=== PATIENT | female | born 1955 | race Caucasian/White ===

== ENCOUNTER 2016-10-11 15:08 | Inpatient (IN) ==
--- NOTE | 2016-10-11 15:16 | Emergency Department Note ---
Addendum entered and electronically signed by Margarito Hill DO 10/11/16 20:21: Patient was started on broad-spectrum antibiotics, for leukocytosis with sepsis and a left foot infection, presumed cellulitis with a demarcated area in the emergency department, left foot ulcer poorly healed, that did not show any rapid expansion, no crepitus on exam. During the ED course patient was stable and an Xray was obtained in the ED of the left foot to eval for osteo, however this read was called to the floor as the patient had just left the Emergency Department admitted. This resident was then made aware that the Bucket Pusher was consulted and the Xray showed necrotizing fasciitis, that this finding was communicated to the hospitalist taking care of the patient, and surgical management was appropriately arranged for in the hospital by the hospitalist upon admission, and that this was done expediently. Original Note: Disposition Clinical Impression: Cellulitis Qualifiers: Site of cellulitis: extremity Site of cellulitis of extremity: lower extremity Laterality: left Qualified Code(s): L03.116 - Cellulitis of left lower limb Sepsis Qualifiers: Qualified Code(s): A41.9 - Disposition: Admitted As Inpatient Condition: Critical Time of Disposition: 18:09 General Adult HPI - General Chief complaint: ED Nausea/Vomiting/Diarrhea Stated complaint: N/V/D Time Seen by Provider: 10/11/16 15:14 Source: patient Mode of arrival: ambulatory Limitations: no limitations Nursing Notes Reviewed: Yes Vital Signs Reviewed: Yes - History of Present Illness HPI Narrative: 61-year-old female with history of diabetic foot ulcer. Presents with NV x 3 days. Reports subjective fevers at home. 8/10 left foot pain, mara serna seen [address] serna. She denies chest pain, abdominal pain, reports nausea and vomiting, denies diarrhea hematochezia melena Onset (ago): day(s) (2) Location: lower extremity Pain Severity: moderate Pain Scale: 5 Quality: aching Consistency: intermittent Improves with: nothing Worsens with: nothing Associated symptoms: Reports: denies other symptoms Treatments Prior to Arrival: none - Related Data Home Medications Medication Instructions Recorded Confirmed Aspirin Enteric Coated [Aspirin EC] 81 mg PO DAILY 08/13/16 10/11/16 Acetaminophen [Tylenol] 650 mg PO Q6HR PRN 10/11/16 10/11/16 Collagenase Oint [Santyl] 1 appl TP BID 10/11/16 10/11/16 Metformin [Glucophage] 1,000 mg PO BID 10/11/16 10/11/16 Previous Rx's Medication Instructions Recorded Atorvastatin [Lipitor] 40 mg PO HS #30 tablet 08/17/16 Clopidogrel [Plavix] 75 mg PO DAILY #30 tablet 08/17/16 Lisinopril [Zestril] 2.5 mg PO DAILY tablet 08/17/16 Allergies Allergy/AdvReac Type Severity Reaction Status Date / Time codeine AdvReac Intermediate Confusion Verified 08/13/16 13:35 Review of Systems: A 14 point ROS was obtained and was negative except as per below or as documented in the HPI. Constitutional: Denies: fever, chills, weakness, weight change Eyes: Denies: eye pain, eye discharge, vision change ENT: Denies: ear pain, throat pain, hearing loss, epistaxis, congestion, Cardiovascular: Denies: chest pain, palpitations, dyspnea on exertion, edema, syncope Respiratory: Denies: cough, dyspnea, wheezes, hemoptysis, stridor Gastrointestinal: nausea, vomiting Denies: abdominal pain,. diarrhea, constipation, hematemesis, hematochezia Genitourinary: Denies: urgency, dysuria, frequency, hematuria Musculoskeletal: Denies: back pain, neck pain, arthralgia, myalgia Integumentary: +Left foot ulcer Denies: rash, abrasion, lesions Neurological: Denies: headache, weakness, numbness, paresthesias, confusion, abnormal gait Psychiatric: Denies: anxiety, depression, suicidal thoughts, homicidal thoughts , Endocrine: Denies: fatigue Hematological/Lymphatic: Denies: easy bleeding, easy bruising Allergic/Immunologic: Denies: facial swelling, urticaria All systems ED: reviewed and negative except as stated. 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 - Social History Smoking Status: Current every day smoker Smokeless Tobacco Status: No Alcohol use: Reports: none Drug use: Reports: none Physical Exam General: alert and oriented, in NAD, appears stated age, is pleasant and cooperative to exam Head: NCAT, no lesions Eyes: sclera anicteric, conjunctiva normal, PERRLA bilaterally, EOMI Bilaterally Ears: normal inspection, external ear wnl Nose: nasal septum nondeviated, sinuses nontender Throat: good dentition, mucous membranes moist Neck: no lymphadenopathy, trachea midline no deviation, no JVD Resp: CTA bilaterally, no resp distress, symmetric chest rise, no wheezes, rales , or rhonchi bilaterally CV: RRR, normal S1 and S2, no m/g/r, Pulses +2 Rad, +2 DP/PT Abdomen: Soft, NTND, no hepatosplenomegaly, no hernias, Negative Rovsing's sign , Negative Gage's sign Back: normal inspection, no tenderness to palpation, Negative CVA tenderness bilaterally Neuro: A&O3, CN II-XII grossly intact bilaterally, no motor or sensory deficits bilaterally, gait normal, GCS 15 [id number] Ext: foul smelling left foot, large 3 cm ulcer, evidence of granulation tissue , no obvious pus or drainage. Market cellulitis around the left lower leg Psych: normal mood, normal affect Skin: No rashes, skin warm, dry, intact Course Course Narrative: 61-year-old female concern for sepsis given tachycardia and temperature 101.6 source is likely the foot, full septic workup ordered with blood cultures lactate, 2 L of IV fluids, - Reevaluation(s) Reevaluation #1: Admitted to medicine service accepting Patient was started on Zosyn and Vanc imaging was added, patient is stable time of acceptance. Vital Signs Temperature 101.6 F H 10/11/16 15:10 Pulse Rate 93 10/11/16 15:10 Respiratory Rate 22 10/11/16 15:10 Blood Pressure 115/59 10/11/16 15:10 O2 Sat by Pulse Oximetry 100 10/11/16 15:10 Temperature 101.1 F H 10/11/16 18:44 Pulse Rate 90 10/11/16 18:44 Respiratory Rate 17 10/11/16 18:44 Blood Pressure 115/62 10/11/16 18:44 O2 Sat by Pulse Oximetry 98 10/11/16 18:44 Oxygen Delivery Oxygen Delivery Room Air Medical Decision Making - MDM Narrative Medical decision making narrative: 61-year-old female admitted to the hospitalist service for sepsis, started on broad-spectrum antibiotics, IV fluids no evidence of severe sepsis at the time of ED presentation, but 2 L fluid bolus was given anyway, lactate normal repeat lactate was ordered. patient vss bp good on admission. - Medical Records Medical records reviewed: Yes I reviewed the patient's medical records. - Lab Data Lab results reviewed: Yes I reviewed the patient's lab results. Result diagrams: 10/11/16 15:36 10/11/16 15:36 Lab Results 10/11/16 10/11/16 10/11/16 Range/Units 15:36 15:36 15:36 WBC 24.3 H (4.3-11.1) K/mcL RBC 3.92 (3.82-4.97) M/mcL Hgb 10.5 L (11.5-15.4) g/dL Hct 32.7 L (35.3-44.9) % MCV 83.4 (83.0-100.0) fL MCH 26.8 L (28.0-33.3) pg MCHC 32.1 (31.6-35.5) g/dL RDW 13.8 (11.5-14.5) % Plt Count 323 (140-400) K/mcL MPV 11.0 (9.4-12.4) fL Immature Gran % 2.2 (0-4) % Seg Neutrophils % 87.9 % Lymphocytes % 3.2 % Monocytes % 6.5 % Eosinophils % 0.0 % Basophils % 0.2 % Neutrophils # 21.4 H (1.6-8.9) K/mcL Lymphocytes # 0.8 (0.6-4.6) K/mcL Monocytes # 1.6 H (0.0-1.3) K/mcL Eosinophils # 0.0 (0.0-0.6) K/mcL Basophils # 0.1 (0.0-0.2) K/mcL Platelet Estimate Normal (Normal) PT 15.6 H (9.4-12.1) Seconds INR 1.4 APTT 32.2 (26.0-36.0) Seconds Sodium 134 L (136-145) mEq/L Potassium 3.5 (3.5-4.5) mEq/L Chloride 97 L (98-109) mEq/L Carbon Dioxide 25 (19-29) mEq/L BUN 36 H (7-20) mg/dL Creatinine 1.06 (0.57-1.11) mg/dL Est GFR ( Amer) > 60 (> 60) Est GFR (Non-Af Amer) 53 L (> 60) BUN/Creatinine Ratio 34 H (6-26) Glucose 217 H (70-99) mg/dL Calculated Osmolality 293 (280-300) Lactic Acid (0.5-2.2) mmol/L Calcium 9.2 (8.6-10.8) mg/dL Phosphorus 3.7 (2.3-4.7) mg/dL Magnesium 1.6 (1.6-2.6) mg/dL Total Bilirubin 0.5 (0.2-1.2) mg/dL Direct Bilirubin 0.4 (0.0-0.5) mg/dL Indirect Bilirubin 0.1 (0.0-1.2) mg/dL AST 50 H (5-34) Units/L ALT 17 (0-55) Units/L Alkaline Phosphatase 78 (38-126) Units/L Troponin I (0-0.03) ng/mL Serum Total Protein 8.0 (6.0-8.3) g/dL Albumin 2.1 L (3.5-5.0) g/dL Globulin 5.9 H (2.4-3.5) g/dL Albumin/Globulin Ratio 0.4 L (1.1-2.2) 10/11/16 10/11/16 Range/Units 15:36 15:36 WBC (4.3-11.1) K/mcL RBC (3.82-4.97) M/mcL Hgb (11.5-15.4) g/dL Hct (35.3-44.9) % MCV (83.0-100.0) fL MCH (28.0-33.3) pg MCHC (31.6-35.5) g/dL RDW (11.5-14.5) % Plt Count (140-400) K/mcL MPV (9.4-12.4) fL Immature Gran % (0-4) % Seg Neutrophils % % Lymphocytes % % Monocytes % % Eosinophils % % Basophils % % Neutrophils # (1.6-8.9) K/mcL Lymphocytes # (0.6-4.6) K/mcL Monocytes # (0.0-1.3) K/mcL Eosinophils # (0.0-0.6) K/mcL Basophils # (0.0-0.2) K/mcL Platelet Estimate (Normal) PT (9.4-12.1) Seconds INR APTT (26.0-36.0) Seconds Sodium (136-145) mEq/L Potassium (3.5-4.5) mEq/L Chloride (98-109) mEq/L Carbon Dioxide (19-29) mEq/L BUN (7-20) mg/dL Creatinine (0.57-1.11) mg/dL Est GFR ( Amer) (> 60) Est GFR (Non-Af Amer) (> 60) BUN/Creatinine Ratio (6-26) Glucose (70-99) mg/dL Calculated Osmolality (280-300) Lactic Acid 1.5 (0.5-2.2) mmol/L Calcium (8.6-10.8) mg/dL Phosphorus (2.3-4.7) mg/dL Magnesium (1.6-2.6) mg/dL Total Bilirubin (0.2-1.2) mg/dL Direct Bilirubin (0.0-0.5) mg/dL Indirect Bilirubin (0.0-1.2) mg/dL AST (5-34) Units/L ALT (0-55) Units/L Alkaline Phosphatase (38-126) Units/L Troponin I 0.03 (0-0.03) ng/mL Serum Total Protein (6.0-8.3) g/dL Albumin (3.5-5.0) g/dL Globulin (2.4-3.5) g/dL Albumin/Globulin Ratio (1.1-2.2) - Radiology Data Radiology results reviewed: Yes I reviewed the patient's radiology results. Chest X-Ray 10/11/16 15:15 IMPRESSION: No acute cardiopulmonary disease. D/ / Pedro Pablo Zuniga MD / Pedro Pablo Zuniga MD Interpreting Provider: Pedro Pablo Zuniga MD - EKG Data EKG #1 EKG attestation: Yes I reviewed and interpreted this EKG. EKG shows normal: sinus rhythm (90 bpm [place] 129 QRS 146 QTc 437) [place]/QRS: LBBB (Seen on previous EKG August 2016) When compared to previous EKG there are: no significant changes Interpretation: no acute changes - Core Measures AMI Core Measures Followed: No Critical Care Time Critical Care Time: Yes Total Critical Care Time: 30 Attestation: Critical care performed: Time is exclusive of separately billable procedures. Time includes: direct patient care, patient reassessment, coordination of patient care, interpretation of data (laboratory data, radiology data, and respiratory data), review of patient's medical records, medical consultation and documentation of patient care. Procedures included in critical care time: Procedures excluded from critical care time: Attestation Statement - Attestation Attestation: I examined this patient and my medical decision-making was reviewed with the ASSISTANT PROFESSOR OF PHILOSOPHY/PA/Advanced Practice Nurse/Resident Physician. I agree with the documented findings, disposition and treatment plan as described except to the extent set forth below. Patient presents to the emergency department she complained of a left foot infection. Patient has a chronic wound on her heel is complaining of pain and redness. On examination she has a chronic appearing ulceration on the left heel. There is a moderate amount of surrounding erythema. She is febrile. Plan. Septic workup. Patient was old and white count. Given broad-spectrum antibiotics. Admitted to medicine.
[2016-10-11] MEDS: 0.9 % Sodium Chloride 1,000 ML IVC SCH ×2 (15:30→16:39)
[2016-10-11 15:54] LABS: Basophils # 0.1 K/mcL (0.0-0.2); Basophils % 0.2 %; Hematocrit 32.7 % (35.3-44.9); Hemoglobin 10.5 g/dL (11.5-15.4); Immature Granulocytes % 2.2 % (0-4); Lymphocytes # 0.8 K/mcL (0.6-4.6); Lymphocytes % 3.2 %; Mean Corpuscular HGB Conc 32.1 g/dL (31.6-35.5); Mean Corpuscular Hemoglobin 26.8 pg (28.0-33.3); Mean Corpuscular Volume 83.4 fL (83.0-100.0); Monocytes # 1.6 K/mcL (0.0-1.3); Monocytes % 6.5 %; Platelet Count 323 K/mcL (140-400); Red Blood Count 3.92 M/mcL (3.82-4.97); Red Cell Distribution Width 13.8 % (11.5-14.5); Segmented Neutrophils % 87.9 %
[2016-10-11 15:56] LABS: Neutrophils # 21.4 K/mcL (1.6-8.9)
[2016-10-11 15:59] LABS: INR 1.4; Prothrombin Time 15.6 Seconds (9.4-12.1)
[2016-10-11] MEDS ORDERED: Vancomycin 1,000 MG in D5% in Water 250 ML IVPB ONE (16:01)
[2016-10-11] MEDS ORDERED: Piperacillin/Tazobactam 3.375 GM in D5% in Water (Mini-Bag+) 100 ML IVPB ONE (16:01)
[2016-10-11 16:02] LABS: Activated Partial Thrombo Time 32.2 Seconds (26.0-36.0)
[2016-10-11 16:08] LABS: Alanine Aminotransferase 17 Units/L (0-55); Albumin 2.1 g/dL (3.5-5.0); Albumin/Globulin Ratio 0.4 (1.1-2.2); Alkaline Phosphatase 78 Units/L (38-126); Aspartate Amino Transferase 50 Units/L (5-34); BUN/Creatinine Ratio 34 (6-26); Bilirubin,Direct 0.4 mg/dL (0.0-0.5); Bilirubin,Indirect 0.1 mg/dL (0.0-1.2); Bilirubin,Total 0.5 mg/dL (0.2-1.2); Blood Urea Nitrogen 36 mg/dL (7-20); Calcium 9.2 mg/dL (8.6-10.8); Carbon Dioxide 25 mEq/L (19-29); Chloride 97 mEq/L (98-109); Globulin 5.9 g/dL (2.4-3.5); Glucose 217 mg/dL (70-99); Magnesium 1.6 mg/dL (1.6-2.6); Osmolality,Calculated 293 (280-300); Phosphorous 3.7 mg/dL (2.3-4.7); Potassium 3.5 mEq/L (3.5-4.5); Sodium 134 mEq/L (136-145); eGFR For African Americans > 60 (> 60); eGFR For Non-African Americans 53 (> 60)
[2016-10-11 16:14] LABS: Platelet Estimate Normal (Normal)
[2016-10-11] MEDS ORDERED: 0.9 % Sodium Chloride 1,000 ML IV ONE (16:55)
--- NOTE | 2016-10-11 17:57 | Internal Med History&Physical ---
<Wes Hebert - Last Filed: 10/11/16 18:31> Date of Encounter: 10/11/16 Time of Encounter: 18:00 Assessment and Plan (1) Sepsis Current visit: Yes Status: Acute Patient presented with fever, borderline tachycardia, and leukocytosis, with likely source being her diabetic foot ulcer Will continue broad spectrum antibiotics with Vancomycin and Zosyn; await culture sensitivities prior to de-escalation Blood cultures collected and wound cultures ideally will be collected during debridement Obtain MRI to rule out osteomyelitis Supportive measures with IVF @ 80 ml/hr, anti-pyretics and anti-emetics Qualifiers: Qualified Code(s): A41.9 - Sepsis, unspecified organism (2) Diabetic ulcer of left foot Current visit: Yes Status: Acute The ulcer certainly looks deep, but unable to definitively locate any bone Will obtain MRI without contrast of left foot to rule out osteomyelitis Podiatry consulted, appreciate management and recommendations Would ideally obtain wound culture from debridement if procedure is indicated Consult wound care and oncology social work if she requires additional services upon discharge Qualifiers: Diabetes mellitus type: type 2 Qualified Code(s): E11.621 - Type 2 diabetes mellitus with foot ulcer; L97.529 - Non-pressure chronic ulcer of other part of left foot with unspecified severity (3) Uncontrolled diabetes mellitus Current visit: Yes Status: Chronic Likely uncontrolled given her history of ulcers and vascular disease Will obtain HbA1c level tomorrow morning Start on medium dose SSI ACHS and accuchecks per protocol Patient likely may benefit from perinatal educator and insulin coverage upon discharge Qualifiers: Qualified Code(s): E11.65 - Type 2 diabetes mellitus with hyperglycemia (4) Peripheral vascular disease Current visit: Yes Status: Chronic Patient is s/p fem-tib bypass with graft 2 months ago Will rule out occlusion/clot by obtaining left foot arterial and venous dopplers (5) Coronary artery disease Current visit: No Status: Chronic Patient is s/p LYLE to RCA 2 months ago and has no active chest pain Continue with home dose ASA and Plavix Qualifiers: Coronary Disease-Associated Artery/Lesion type: [place] artery [place] vs. transplanted heart: [place] heart Associated angina: without angina Qualified Code(s): I25.10 - Atherosclerotic heart disease of [place] coronary artery without angina pectoris (6) HLD (hyperlipidemia) Current visit: No Status: Chronic Continue home Lipitor Qualifiers: Hyperlipidemia type: mixed hyperlipidemia Qualified Code(s): E78.2 - Mixed hyperlipidemia (7) HTN (hypertension) Current visit: No Status: Chronic Blood pressures have been stable and WNL since admission Continue with home Lisinopril Qualifiers: Hypertension type: essential hypertension Qualified Code(s): I10 - Essential (primary) hypertension (8) DVT prophylaxis Current visit: Yes Status: Acute Heparin 5000 units BID Internal Medicine - H&P: HPI Chief complaint: diabetic foot ulcer Admitted From: Home Plans for Post Hospital Care: Home (possibly with home health) History of present illness: Ms. Clark is a 61 year old female who presents from home with left diabetic foot ulcers that have been progressively worsening over the past week. She states she has been seeing Dr. Pollard for about 2 months, and has wound care through his clinic as well. She lives at home with a friend and claims she has a neighbor that comes by and assists with her wound care. She normally is able to walk with a boot, but hasn't been able to in the past 3-4 days due to severe pain. Patient also states subjective fevers, chills, and has been having nausea and vomiting since midnight. She reports 3 episodes of non-bloody emesis that do not have a triggering factor. She also reports having diarrhea but has not been on any antibiotics recently. Of note, she recently had a left fem-tib bypass done by Dr. Plummer and also had a LYLE to RCA 2 months ago and is currently on ASA and Plavix. Denies any chest pain or shortness of breath. Past Med Surg Social Fam HX - Past Medical History Medical history: diabetes, hyperlipidemia, hypertension Psychiatric history: anxiety - Past Surgical History Surgical History: no surgical history - Social History Smoking Status: Current every day smoker Smokeless Tobacco Status: No Alcohol use: none Drug use: none Internal Medicine - H&P: Meds Aspirin Enteric Coated [Aspirin EC] 81 mg PO DAILY 08/13/16 [History] Atorvastatin [Lipitor] 40 mg PO HS #30 tablet 08/17/16 [Rx] Clopidogrel [Plavix] 75 mg PO DAILY #30 tablet 08/17/16 [Rx] Lisinopril [Zestril] 2.5 mg PO DAILY tablet 08/17/16 [Rx] Acetaminophen [Tylenol] 650 mg PO Q6HR PRN 10/11/16 [History] Collagenase Oint [Santyl] 1 appl TP BID 10/11/16 [History] Metformin [Glucophage] 1,000 mg PO BID 10/11/16 [History] Allergies codeine Adverse Reaction (Intermediate, Verified 08/13/16 13:35) Confusion All Systems PM: A 10-system review of systems was performed and is negative for pertinent findings except as documented above in the HPI. - Constitutional Constitutional: chills, fever(s), no night sweats - EENT Eyes: no change in vision, no discharge, no pain, no photophobia Nose, mouth and throat: no dysphagia, no nasal discharge, no neck pain, no sore throat - Cardiovascular Cardiovascular ROS IM: no chest pain, no diaphoresis, no dyspnea, no lightheadedness, no palpitations, no syncope - Respiratory Respiratory: no cough, no dyspnea, no wheezing, no excessive phlegm production - Gastrointestinal Gastrointestinal: diarrhea, nausea, vomiting, no abdominal pain, no hematemesis , no hematochezia, no melena - Genitourinary Genitourinary: no change in urinary stream, no dysuria, no flank pain, no hematuria - Musculoskeletal Musculoskeletal ROS IM: no numbness, no tingling - Integumentary Integumentary IM: skin ulcer (left foot), no rash, no unusual bruising - Neurological Neurological ROS: no confusion, no convulsions, no focal weakness, no numbness, no tingling, no tremor(s) - Hematologic/Lymphatic Hematologic/Lymphatic: no easy bruising - Constitutional Vitals: Temp Pulse Resp BP Pulse Ox 101.6 F H 88 22 136/72 96 10/11/16 15:10 10/11/16 17:13 10/11/16 17:13 10/11/16 17:13 10/11/16 17:13 General appearance: Present: cooperative, mild distress, pleasant, answers questions appropriately - Head Head exam: Present: atraumatic, normocephalic - Eye Eye exam: Present: PERRL, conjuntiva pink, sclera anicteric - Neck Neck exam general surgery: Present: supple, trachea midline. Absent: lymphadenopathy - Respiratory Respiratory exam: Present: CTAB. Absent: accessory muscle use, rales, rhonchi, wheezes - Cardiovascular Cardiovascular exam: Present: RRR, +S1, +S2. Absent: diastolic murmur, gallop, rubs, systolic murmur - GI/Abdominal GI/Abdominal exam: Present: normal bowel sounds, soft, no peritoneal signs. Absent: distended, tenderness - Extremities Exam Extremities exam: Present: tenderness (marked tenderness to light palpation of left calf and foot, minimal tenderness of right), warm, radial pulses palpable and symetrical. Absent: calf tenderness, cyanotic, pedal edema Additional comments: two distinct ulcers located at the left foot, one at the base of the heel, roughly 3 cm in circumference; another ulcer located inferior to the medial malleolus; both have black eschar overlying any soft tissue or bony structures that may otherwise be visible - Expanded Lower Extremities Exam Foot/Toe exam: Present: erythema, swelling, tenderness - Neurological Exam Neurological exam: Present: alert, oriented X3, no focal deficits. Absent: facial droop, speech deficit Internal Med - H&P Results - Labs CBC & Chem 7: 10/11/16 15:36 10/11/16 15:36 Labs: Short CBC 10/11/16 Range/Units 15:36 WBC 24.3 H (4.3-11.1) K/mcL Hgb 10.5 L (11.5-15.4) g/dL Hct 32.7 L (35.3-44.9) % Plt Count 323 (140-400) K/mcL Neutrophils # 21.4 H (1.6-8.9) K/mcL BMP 10/11/16 15:36 Sodium 134 L Potassium 3.5 Chloride 97 L Carbon Dioxide 25 BUN 36 H Creatinine 1.06 Glucose 217 H Calcium 9.2 Cardiac Enzymes 10/11/16 Range/Units 15:36 Troponin I 0.03 (0-0.03) ng/mL Liver Function 10/11/16 Range/Units 15:36 Total Bilirubin 0.5 (0.2-1.2) mg/dL Direct Bilirubin 0.4 (0.0-0.5) mg/dL AST 50 H (5-34) Units/L ALT 17 (0-55) Units/L Alkaline Phosphatase 78 (38-126) Units/L Albumin 2.1 L (3.5-5.0) g/dL - Impressions ITS Impressions Chest X-Ray 10/11/16 15:15 IMPRESSION: No acute cardiopulmonary disease. D/ / Pedro Pablo Zuniga MD / Pedro Pablo Zuniga MD Interpreting Provider: Pedro Pablo Zuniga MD <Josephine Osborn - Last Filed: 10/11/16 21:29> Date of Encounter: 10/11/16 Internal Medicine - H&P: HPI History of present illness: Ms. Clark is a 61 year old female All Systems PM: A 10-system review of systems was performed and is negative for pertinent findings except as documented above in the HPI. - Constitutional Vitals: Temp Pulse Resp BP Pulse Ox 101.1 F H 90 17 115/62 98 10/11/16 18:44 10/11/16 18:44 10/11/16 18:44 10/11/16 18:44 10/11/16 18:44 Internal Med - H&P Results - Labs CBC & Chem 7: 10/11/16 15:36 10/11/16 15:36 - Impressions ITS Impressions Foot X-Ray 10/11/16 17:49 IMPRESSION: 1. Extensive soft tissue gas throughout the foot and extending into the distal lower extremity beyond the field of view. Findings can be seen with necrotizing fasciitis. 2. Subtle cortical changes along the plantar aspect of the calcaneus may represent early changes of osteomyelitis. Critical results were called by Grady Minaya MD to Dr. Hebert on 10/11/2016 at 19:06. D/ / Grady Minaya MD / Grady Minaya MD Interpreting Provider: Grady Minaya MD Foot MRI 10/11/16 18:16 IMPRESSION: 1. Soft tissue ulceration along the plantar surface of the foot at the level of the heel with underlying marrow signal changes within the calcaneus compatible with osteomyelitis. 2. Extensive subcutaneous gas is present throughout the plantar foot and extending into the partially visualized proximal lower leg concerning for necrotizing soft tissue infection. 3. Nonspecific joint effusions of the tibiotalar and subtalar joints as well as the calcaneal cuboid and talonavicular articulations. Gas also present within the tibiotalar and subtalar joint concerning for possible septic joint. 4. Tenosynovitis of the peroneus longus and posterior tibialis tendon sheaths. 5. Thickening of the proximal plantar fascia medially with mild internal fluid signal which closely approximates the underlying ulceration concerning for possible infectious involvement. D/ / Darryn Rodriguez MD / Darryn Rodriguez MD Interpreting Provider: Darryn Rodriguez MD - Attending Attestation I have seen and examined the patient independently and agree with the assessment and plan as listed by the resident physician. In addition to the listed plan, patient was noted to have extensive soft tissue gas throughout the foot extending into the distal lower extremity concerning for necrotizing fascitis. Patient is frail appearing and in significant painful distress. Vascular surgery (Dr. Pacheco) and podiatry (Dr. Paredes) were consulted. Due to severe progression of her symptoms and sepsis, patient will be transferred to the ICU. Patient will need above knee amputation. Dr. Pacheco is to follow up with the patient tonight. Critical care time spent with the patient was 30 minutes.
[2016-10-11] MEDS ORDERED: *HR* Dextrose 50 % in Water (Syg) 50 ML SYRINGE IVP PRN (17:58)
[2016-10-11] MEDS ORDERED: *HR* HYDROcodone/Acet 5/325 mg TABLET PO PRN (17:58)
[2016-10-11] MEDS ORDERED: D5% in Water 1,000 ML IV PRN (17:58)
[2016-10-11] MEDS ORDERED: Acetaminophen 325 MG TABLET PO PRN (17:58)
[2016-10-11] MEDS ORDERED: Dextrose Gel 15 GM PO PRN ×2 (17:58)
[2016-10-11] MEDS ORDERED: Naloxone 0.4 MG/ML INJ IVP PRN (17:58)
[2016-10-11] MEDS ORDERED: Ondansetron 4 MG/2 ML VIAL IVP PRN (17:58)
[2016-10-11] MEDS ORDERED: Vancomycin 1,000 MG in D5% in Water 250 ML IVPB SCH ×2 (18:00→19:00)
[2016-10-11] MEDS ORDERED: 0.9 % Sodium Chloride 1,000 ML IVC SCH (18:00)
[2016-10-11] MEDS ORDERED: Insulin LISPRO 300 UNITS/3 ML VIAL SQ SCH (21:00)
[2016-10-11] MEDS ORDERED: *HR* Heparin 5,000 UNIT/ML VIAL SQ SCH (21:00)
--- NOTE | 2016-10-11 21:11 | Vascular/Endovascular H&P ---
Date of Encounter: 10/11/16 Time of Encounter: 21:00 Assessment and Plan (1) Gas gangrene of lower extremity Current Visit: Yes Status: Acute The patient has gas gangrene of the left lower extremity complicated by diabetes and peripheral vascular disease. She is septic and being transferred to intensive care unit. Once stable, I have recommended left above-knee amputation as a life-saving measure. History of Present Illness Chief complaint: Painful left foot HPI: Ms. Clark is a 61 year old female He developed a painful left foot that was quite severe 3 or 4 days ago. She presented to the emergency room this afternoon. She has a severe abscess of the foot. Plain films demonstrate tracking gas along the fascia lines above the ankle and into the distal calf. She was admitted to the hospitalist service. An MRI of the extremity was ordered. I was contacted directly by radiology that the MRI demonstrated osteomyelitis of the calcaneus, septic joints in the ankle and foot, severe cellulitis, and gas tracking along the fascial planes throughout the foot, ankle, and distal calf. I saw the patient emergently area her blood pressure is 120. She is tachycardic. Her glucose levels are all over 200 today. She is in severe pain. Her last limb salvage attempt was a femoral tibial bypass by in August 2016. Incisions are well-healed. The patient appears septic and is being transferred to the intensive care unit at this time. I initially had an evaluation with her and I have strongly recommended above-knee amputation as a life-saving measure. Past Med Surg Social Fam HX - Past Medical History Medical history: diabetes, hyperlipidemia, hypertension Psychiatric history: anxiety - Past Surgical History Surgical History: no surgical history, other (Femoral tibial bypass in August 2016. She is followed chronically in wound clinic.) - Social History Smoking Status: Current every day smoker Smokeless Tobacco Status: No Alcohol use: none Drug use: none Medications and Allergies Aspirin Enteric Coated [Aspirin EC] 81 mg PO DAILY 08/13/16 [History] Atorvastatin [Lipitor] 40 mg PO HS #30 tablet 08/17/16 [Rx] Clopidogrel [Plavix] 75 mg PO DAILY #30 tablet 08/17/16 [Rx] Lisinopril [Zestril] 2.5 mg PO DAILY tablet 08/17/16 [Rx] Acetaminophen [Tylenol] 650 mg PO Q6HR PRN 10/11/16 [History] Collagenase Oint [Santyl] 1 appl TP BID 10/11/16 [History] Metformin [Glucophage] 1,000 mg PO BID 10/11/16 [History] Allergies codeine Adverse Reaction (Intermediate, Verified 08/13/16 13:35) Confusion All Systems Review: A 10-system review of systems was performed and is negative for pertinent findings except as documented above in the HPI. Exam Vital Signs, Last 4 Hours Temp Pulse Resp BP Pulse Ox 10/11/16 18:44 101.1 F H 90 17 115/62 98 10/11/16 18:01 22 129/72 General: Present: Conversant, Other (Patient is in severe left lower extremity pain) HEENT: Present: Trachea midline, Pupils equal Cardiac: Present: Reg Rate and Rhythm, Normal S1 and S2, No Murmur, Other ( Tachycardic) Lungs: Present: Normal Breath Sounds, No Wheeze, Rales, Rhonchi Neuro: Present: Alert and responsive, No focal deficits noted Abdomen: Present: Soft, Non-tender Vascular: Present: Other (The left foot is bright red with palpable gas there is a large medial ulcer overlying the calcaneus. I think I can palpate gas along the Achilles tendon posteriorly.) Results 10/11/16 15:36 10/11/16 15:36
--- NOTE | 2016-10-11 21:42 | Anesthesia Evaluation PreOp ---
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 Any Significant HX Other Medical History: Diabetes Type II Anesthesia History: No Prior Anesthetic Complications Alcohol Use: none Drug use: none Medications and Allergies Aspirin Enteric Coated [Aspirin EC] 81 mg PO DAILY 08/13/16 [History] Atorvastatin [Lipitor] 40 mg PO HS #30 tablet 08/17/16 [Rx] Clopidogrel [Plavix] 75 mg PO DAILY #30 tablet 08/17/16 [Rx] Lisinopril [Zestril] 2.5 mg PO DAILY tablet 08/17/16 [Rx] Acetaminophen [Tylenol] 650 mg PO Q6HR PRN 10/11/16 [History] Collagenase Oint [Santyl] 1 appl TP BID 10/11/16 [History] Metformin [Glucophage] 1,000 mg PO BID 10/11/16 [History] Allergies codeine Adverse Reaction (Intermediate, Verified 08/13/16 13:35) Confusion - Meds/Allergy Pre-op Review Medications Reviewed: Yes Allergies Reviewed: Yes Anesthesia Results - Labs 10/11/16 15:36 10/11/16 15:36 - Imaging EKG: report reviewed (SR LBBB) Additional studies: EF 55% Anesthesia Exam O2 Sat Height 1.63 m Weight 60.781 kg O2 Sat by Pulse Oximetry 98 O2 Sat by Pulse Oximetry 96 O2 Sat by Pulse Oximetry 100 Vital Signs Temp Pulse Resp BP Pulse Ox 101.6 F H 93 22 115/59 100 10/11/16 15:10 10/11/16 15:10 10/11/16 15:10 10/11/16 15:10 10/11/16 15:10 Height: 5'4 Weight: 134 lbs NPO (# of Hours): MN - HEENT Pupil (Motor): Pupils equal, EOMI Mallampati: II Teeth: Normal Oral Opening: Greater than 3 - CLAM SHOVEL OPERATOR LOC: Oriented CLAM SHOVEL OPERATOR Motor: Normal RUE, Normal LUE, Normal RLE, Normal LLE, Normal Face CLAM SHOVEL OPERATOR Sensory: Normal: RUE, LUE, RLE, LLE, Face - Cardiac Rhythm: Regular Murmur: None JVD: No Carotid Bruit: No - Pulmonary Breath Sounds: bilateral Clear Respiratory Effort: Symmetrical Anesthesia Assess/Plan ASA Score: 3, E Modified [place] Scale for Level of Consciousness: Cooperative, oriented, and tranquil Anesthetic Plan: General Monitoring Plan: Standard Monitors Recovery Plan: PACU (Discussed GA, agrees to proceed)
[2016-10-11] MEDS ORDERED: *HR* FentaNYL (PF) 100 MCG/2 ML VIAL ONE ×3 (21:52→22:38)
[2016-10-11] MEDS ORDERED: *HR* Propofol 200 MG/20 ML VIAL IVP ONE (21:53)
[2016-10-11] MEDS ORDERED: *HR* Midazolam HCl 2 MG/2 ML VIAL ONE (21:53)
[2016-10-11] MEDS ORDERED: *HR* HYDROmorphone 2 MG/ML SYRINGE ONE (21:53)
[2016-10-11] MEDS ORDERED: Lidocaine -MPF 2% 2 ML VIAL ONE (21:54)
[2016-10-11] MEDS ORDERED: *HR* Rocuronium Bromide 50 MG/5 ML VIAL ONE (21:54)
[2016-10-11] MEDS ORDERED: Ondansetron 4 MG/2 ML VIAL ONE (21:54)
[2016-10-11] MEDS ORDERED: *HR* Succinylcholine 200 MG/10 ML VIAL IVP ONE (21:54)
[2016-10-11] MEDS ORDERED: Lidocaine -MPF 4% 5 ML AMPUL ONE (21:57)
[2016-10-11] MEDS ORDERED: Famotidine 20 MG/2 ML VIAL ONE (22:07)
[2016-10-11] MEDS ORDERED: Acetaminophen IV 1,000 MG/100 ML INFUS..BTL ONE (22:07)
[2016-10-11] MEDS ORDERED: *HR* Phenylephrine 10 MG/ML VIAL ONE (22:25)
--- NOTE | 2016-10-11 23:21 | Operative Note ---
Date of procedure: 10/11/16 Pre-op diagnosis: gas gangrene left lower extremity Post-op diagnosis: same Procedure: Left above-knee amputation Anesthesia: MADHU Surgeon: Tevin Pacheco Estimated blood loss (cc): 100 Specimen: Left above-knee amputation Condition: stable Disposition: ICU Procedure in Detail: After informed consent the patient was taken emergently to the operating room for life-saving left above-knee amputation. Patient is taken may dropping suite placed in the supine position and given adequate general anesthetic the left leg was prepped and draped in sterile fashion utilizing Betadine solution and sterile draping techniques timeout was taken patient was identified and the lateralizing k[place] was identified. A sketched out a [place] described on the distal thigh and divided the skin with a #10 blade and subcutaneous tissue saphenous vein were divided saphenous vein was divided between medium surgical clips. I divided the anterior musculature with electrocautery several large collaterals were encountered and clamped and secured with hemostatic ligatures. On the medial compartment I identified the femoral tibial bypass graft which was still patent. This clamped and doubly ligated with 0 silk and divided. The [place] superficial femoral artery was clamped and doubly ligated and it was full of thrombus. The femoral vein was clamped and ligated. I divided the lateral musculature and there were posteriorly. I identified the sciatic nerve this was clamped, ligated with 2 ligatures of 0 silk the posterior musculature and skin were divided. I elevated the periosteum and divided the femur with a oscillating saw. Total blood loss was less than 100 mL the specimen was passed off the field no evidence of infection or gas was encountered on the fascial layers I decided to close primarily. The stump was irrigated with copious amounts of Ancef-containing solution. I then closed the muscular layer over the femur with interrupted 0 Vicryl to close the muscular layer anterior to posterior with interrupted 2-0 Vicryl and I closed the superficial fascia anterior to posterior with interrupted 2-0 Vicryl and skin was approximated with skin clips she tolerated procedure very well and because of her septic condition she is transferred to the intensive care unit for further therapy systolic blood pressure is 110 on transfer. She remains tachycardic.
[2016-10-12] MEDS: Insulin LISPRO 300 UNITS/3 ML VIAL SQ SCH ×4 (00:02→20:02)
[2016-10-12 00:48] LABS: Hematocrit 32.4 % (35.3-44.9); Hemoglobin 10.1 g/dL (11.5-15.4); Mean Corpuscular HGB Conc 31.2 g/dL (31.6-35.5); Mean Corpuscular Hemoglobin 26.4 pg (28.0-33.3); Mean Corpuscular Volume 84.6 fL (83.0-100.0); Platelet Count 307 K/mcL (140-400); Red Blood Count 3.83 M/mcL (3.82-4.97)
--- NOTE | 2016-10-12 00:53 | Anesthesia Evaluation Post Op ---
Date of Encounter: 10/11/16 Time of Encounter: 23:50 - Vital Signs Vital Signs: Vital Signs/O2 Sat/Glucose, Most Current Temp Pulse Resp BP Pulse Ox 10/12/16 00:30 99.6 F 85 12 155/88 100 10/12/16 00:15 99.6 F 87 12 151/65 100 10/11/16 23:45 99.6 F 88 12 143/65 100 10/11/16 23:36 99.6 F 85 16 107/61 100 - Lungs Lungs: Clear Ascult./Percussion - Airway Airway: Non-obstructed - Cardiovascular Regular Rate - Mental Status Mental Status: Alert & Oriented, Answers Appropriately - Pain Pain Scale: 0 - Nausea Vomiting Nausea Vomiting: Not Present - Hydration Hydration: NPO - Discharge PostOp Status: Transfer Patient to floor (Patient to ICU)
[2016-10-12 01:01] LABS: BUN/Creatinine Ratio 35 (6-26); Blood Urea Nitrogen 29 mg/dL (7-20); Calcium 8.2 mg/dL (8.6-10.8); Carbon Dioxide 18 mEq/L (19-29); Chloride 107 mEq/L (98-109); Glucose 186 mg/dL (70-99); Osmolality,Calculated 297 (280-300); Potassium 3.3 mEq/L (3.5-4.5); Sodium 138 mEq/L (136-145); eGFR For African Americans > 60 (> 60); eGFR For Non-African Americans > 60 (> 60)
[2016-10-12] MEDS: 0.9 % Sodium Chloride 1,000 ML IVC SCH ×7 (01:34→23:57)
[2016-10-12] MEDS ORDERED: Dextrose Gel 15 GM PO PRN ×4 (01:46→10:18)
[2016-10-12] MEDS ORDERED: *HR* HYDROcodone/Acet 5/325 mg TABLET PO PRN (01:46)
[2016-10-12] MEDS ORDERED: Acetaminophen 325 MG TABLET PO PRN ×2 (01:46→10:18)
[2016-10-12] MEDS ORDERED: *HR* Dextrose 50 % in Water (Syg) 50 ML SYRINGE IVP PRN ×2 (01:46→10:18)
[2016-10-12] MEDS ORDERED: Ondansetron 4 MG/2 ML VIAL IVP PRN ×2 (01:46→10:18)
[2016-10-12] MEDS ORDERED: D5% in Water 1,000 ML IV PRN ×2 (01:46→10:18)
[2016-10-12] MEDS ORDERED: Naloxone 0.4 MG/ML INJ IVP PRN ×2 (01:46→10:18)
[2016-10-12 01:58] LABS: Band Neutrophils % 17.6 % (0-4); Lymphocytes # 0.5 K/mcL (0.6-4.6); Metamyelocytes % 3.9 % (0); Monocytes # 1.9 K/mcL (0.0-1.3); Monocytes % 7.8 %; Neutrophils # 20.6 K/mcL (1.6-8.9); Segmented Neutrophils % 68.6 %
[2016-10-12 01:59] LABS: Platelet Estimate Normal (Normal)
[2016-10-12 02:01] LABS: Large Platelets Present (Not Present)
[2016-10-12] MEDS: *HR* HYDROmorphone (PF) 1 MG/ML SYRINGE IVP PRN ×6 (02:09→12:37)
[2016-10-12 04:23] LABS: Hemoglobin A1C 7.7 %
[2016-10-12] MEDS ORDERED: Vancomycin 1,000 MG in D5% in Water 250 ML IVPB SCH ×4 (06:00→18:00)
[2016-10-12] MEDS ORDERED: Insulin LISPRO 300 UNITS/3 ML VIAL SQ SCH ×2 (07:30→21:00)
[2016-10-12] MEDS ORDERED: Piperacillin/Tazobactam 3.375 GM in D5% in Water (Mini-Bag+) 100 ML IVPB SCH ×2 (08:00)
[2016-10-12] MEDS ORDERED: *HR* Heparin 5,000 UNIT/ML VIAL SQ SCH (09:00)
[2016-10-12] MEDS ORDERED: Aspirin Enteric Coated 81 MG Tablet PO SCH ×2 (09:00)
[2016-10-12] MEDS ORDERED: Pantoprazole 40 MG VIAL IVP SCH ×2 (09:00)
--- NOTE | 2016-10-12 09:41 | Pulmonology Consult Note ---
Addendum entered and electronically signed by Terrell Cameron DO 10/12/16 11:36: Patient is stable for transfer to the floor. Sign out was provided to the admitting hospitalist, Dr. Darden, who accepted the patient for transfer. Original Note: <Terrell Cameron - Last Filed: 10/12/16 11:30> Date of Encounter: 10/12/16 Time of Encounter: 09:38 Assessment and Plan (1) Gas gangrene of lower extremity Current Visit: Yes Status: Acute Concern for necrotizing fasciitis. Patient was taken to the operating room emergently last night by Dr. Pacheco. Patient is postop day 1 status post left ayxby-rge-[id number] amputation. Patient is having some surgical site pain. Continue pain medication will add a one-time dose of Toradol for additional pain control. Continue antibiotics at this time. No evidence of bacteremia or sepsis. Further management per surgery. (2) Diabetes Current Visit: Yes Status: Chronic Hemoglobin A1c is 7.7 on presentation. Blood sugars have been somewhat elevated this morning the patient is eating. We will cover with sliding scale insulin. Will adjust based on sugars. Qualifiers: Diabetes mellitus type: type 2 Diabetes mellitus complication status: with circulatory complication Diabetes mellitus complication detail: with peripheral angiopathy with gangrene Diabetes mellitus alf insulin use: without intermediate teacher use Qualified Code(s): E11.52 - Type 2 diabetes mellitus with diabetic peripheral angiopathy with gangrene (3) Coronary artery disease Current Visit: No Status: Chronic Stable at this time. Continue aspirin Plavix statin. Qualifiers: Coronary Disease-Associated Artery/Lesion type: [place] artery [place] vs. transplanted heart: [place] heart Associated angina: without angina Qualified Code(s): I25.10 - Atherosclerotic heart disease of [place] coronary artery without angina pectoris (4) DVT prophylaxis Current Visit: Yes Status: Acute Heparin 5000 units subcutaneous twice a day. History of Present Illness Consult date: 10/12/16 Requesting physician: Anai Swenson Chief complaint: Foot wound History of present illness: Patient is a 61-year-old female with history of diabetes who presented with a left lower extremity infection. Patient states that approximately a year ago she felt like she had an area of her foot that was becoming a wound, she had sought medical advice as well as neuropathy. This area continued to get worse until yesterday when she presented to the hospital. There is concern for necrotizing fasciitis the patient was taken emergently to the operating room for a left yvanr-dbj-zzel amputation. The patient was transferred to the ICU for concern of sepsis and hypotension. Patient was extubated successfully postoperatively. Since admission the ICU she states she has felt pretty good other than some mild pain at the site of surgery. She denies any fever, chills , chest pain, shortness of breath, nausea, vomiting, diarrhea. Past Med Surg Social Fam HX - Past Medical History Medical history: diabetes, hyperlipidemia, hypertension Psychiatric history: anxiety - Past Surgical History Surgical History: no surgical history, other (Femoral tibial bypass in August 2016. She is followed chronically in wound clinic.) - Social History Smoking Status: Current every day smoker Smokeless Tobacco Status: No Alcohol use: none Drug use: none Medications and Allergies Aspirin Enteric Coated [Aspirin EC] 81 mg PO DAILY 08/13/16 [History] Atorvastatin [Lipitor] 40 mg PO HS #30 tablet 08/17/16 [Rx] Clopidogrel [Plavix] 75 mg PO DAILY #30 tablet 08/17/16 [Rx] Lisinopril [Zestril] 2.5 mg PO DAILY tablet 08/17/16 [Rx] Acetaminophen [Tylenol] 650 mg PO Q6HR PRN 10/11/16 [History] Collagenase Oint [Santyl] 1 appl TP BID 10/11/16 [History] Metformin [Glucophage] 1,000 mg PO BID 10/11/16 [History] Allergies codeine Adverse Reaction (Intermediate, Verified 08/13/16 13:35) Confusion All Systems: A 10-system review of systems was performed and is negative for pertinent findings except as documented above in the HPI. - Constitutional Constitutional: no chills, no fever(s) - Cardiovascular Cardiovascular: no chest pain, no dyspnea, no leg edema - Respiratory Respiratory: no cough, no dyspnea - Gastrointestinal Gastrointestinal: no abdominal pain, no diarrhea, no nausea, no vomiting - Genitourinary Genitourinary: no dysuria - Musculoskeletal Musculoskeletal: arthralgias - Neurological Neurological: no confusion, no dizziness, no syncope Physical Examination Vital Signs: Vital Signs, Last 4 Hours Temp Pulse Resp BP Pulse Ox 10/12/16 07:59 98.0 F 10/12/16 06:00 71 15 143/66 99 General appearance: no acute distress Effort: normal Auscultation: bilateral: clear Cardiovascular: regular rate and rhythm Gastrointestinal: normoactive bowel sounds, soft, non-tender, non-distended Extremities: no cyanosis, no edema, no clubbing, other (Patient is status post left AKA. Surgical dressing in place. Dressing is clean dry and intact.) normal mental status, non-focal exam Results - Laboratory Findings CBC and BMP: 10/12/16 00:36 10/12/16 00:36 PT/INR, D-dimer PT 15.6 Seconds (9.4-12.1) H 10/11/16 15:36 Abnormal lab findings: Abnormal lab results WBC 23.9 K/mcL (4.3-11.1) H 10/12/16 00:36 Hgb 10.1 g/dL (11.5-15.4) L 10/12/16 00:36 Hct 32.4 % (35.3-44.9) L 10/12/16 00:36 MCH 26.4 pg (28.0-33.3) L 10/12/16 00:36 MCHC 31.2 g/dL (31.6-35.5) L 10/12/16 00:36 Band Neutrophils % 17.6 % (0-4) H 10/12/16 00:36 Metamyelocytes % 3.9 % (0) H 10/12/16 00:36 Neutrophils # 20.6 K/mcL (1.6-8.9) H 10/12/16 00:36 Lymphocytes # 0.5 K/mcL (0.6-4.6) L 10/12/16 00:36 Monocytes # 1.9 K/mcL (0.0-1.3) H 10/12/16 00:36 Large Platelets Present (Not Present) A 10/12/16 00:36 PT 15.6 Seconds (9.4-12.1) H 10/11/16 15:36 Potassium 3.3 mEq/L (3.5-4.5) L 10/12/16 00:36 Carbon Dioxide 18 mEq/L (19-29) L 10/12/16 00:36 BUN 29 mg/dL (7-20) H 10/12/16 00:36 BUN/Creatinine Ratio 35 (6-26) H 10/12/16 00:36 Glucose 186 mg/dL (70-99) H 10/12/16 00:36 POC Glucose 271 (58-89) H 10/12/16 07:34 Hemoglobin A1c 7.7 % (-5.6) H 10/12/16 00:36 Calcium 8.2 mg/dL (8.6-10.8) L 10/12/16 00:36 AST 50 Units/L (5-34) H 10/11/16 15:36 Albumin 2.1 g/dL (3.5-5.0) L 10/11/16 15:36 Globulin 5.9 g/dL (2.4-3.5) H 10/11/16 15:36 Albumin/Globulin Ratio 0.4 (1.1-2.2) L 10/11/16 15:36 - Clinical Findings Intake & Output: Intake & Output 10/11/16 10/12/16 10/12/16 23:59 07:59 15:59 Output Total 150 / 150 Balance -150 / 970 Consult Discharge Plan - Plan Referrals: NO,PCP [Primary Care Provider] - <Ramos Benoit - Last Filed: 10/12/16 14:20> All Systems: A 10-system review of systems was performed and is negative for pertinent findings except as documented above in the HPI. Physical Examination Vital Signs: Vital Signs, Last 4 Hours Temp Pulse Resp BP Pulse Ox 10/12/16 11:21 97.6 F 77 14 122/70 97 Results - Laboratory Findings CBC and BMP: 10/12/16 00:36 10/12/16 00:36 PT/INR, D-dimer PT 15.6 Seconds (9.4-12.1) H 10/11/16 15:36 Abnormal lab findings: Abnormal lab results WBC 23.9 K/mcL (4.3-11.1) H 10/12/16 00:36 Hgb 10.1 g/dL (11.5-15.4) L 10/12/16 00:36 Hct 32.4 % (35.3-44.9) L 10/12/16 00:36 MCH 26.4 pg (28.0-33.3) L 10/12/16 00:36 MCHC 31.2 g/dL (31.6-35.5) L 10/12/16 00:36 Band Neutrophils % 17.6 % (0-4) H 10/12/16 00:36 Metamyelocytes % 3.9 % (0) H 10/12/16 00:36 Neutrophils # 20.6 K/mcL (1.6-8.9) H 10/12/16 00:36 Lymphocytes # 0.5 K/mcL (0.6-4.6) L 10/12/16 00:36 Monocytes # 1.9 K/mcL (0.0-1.3) H 10/12/16 00:36 Large Platelets Present (Not Present) A 10/12/16 00:36 PT 15.6 Seconds (9.4-12.1) H 10/11/16 15:36 Potassium 3.3 mEq/L (3.5-4.5) L 10/12/16 00:36 Carbon Dioxide 18 mEq/L (19-29) L 10/12/16 00:36 BUN 29 mg/dL (7-20) H 10/12/16 00:36 BUN/Creatinine Ratio 35 (6-26) H 10/12/16 00:36 Glucose 186 mg/dL (70-99) H 10/12/16 00:36 POC Glucose 151 (58-89) H 10/12/16 12:35 Hemoglobin A1c 7.7 % (-5.6) H 10/12/16 00:36 Calcium 8.2 mg/dL (8.6-10.8) L 10/12/16 00:36 AST 50 Units/L (5-34) H 10/11/16 15:36 Albumin 2.1 g/dL (3.5-5.0) L 10/11/16 15:36 Globulin 5.9 g/dL (2.4-3.5) H 10/11/16 15:36 Albumin/Globulin Ratio 0.4 (1.1-2.2) L 10/11/16 15:36 - Clinical Findings Intake & Output: Intake & Output 10/11/16 10/12/16 10/12/16 23:59 07:59 15:59 Output Total 150 / 150 300 / 300 Balance -150 / 970 -300 / -300 - Attending Attestation I examined this patient and my medical decision-making was reviewed with the RESTAURANT HOST/HOSTESS/PA/Advanced Practice Nurse/Resident Physician. I agree with the documented findings, disposition and treatment plan as described except to the extent set forth below. Patient seen and examined. Labs, radiology, chart personally reviewed. 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 Patient has recent surgery and surgeon is following up.
--- NOTE | 2016-10-12 10:37 | Vascular/[facility] Progress Note ---
Date of Encounter: 10/12/16 Time of Encounter: 10:35 - Assessment and plan (1) Gas gangrene of lower extremity Current Visit: Yes Status: Acute POD #1 left AKA for gas gangrene IV antibiotics - Vancyomycin and Zosyn IVF pain control diabetic diet I examined this patient and my medical decision-making was reviewed with the ELECTRICIAN'S HELPER/PA/Advanced Practice Nurse/Resident Physician. I agree with the documented findings, disposition and treatment plan as described except to the extent set forth below. Tevin Pacheco MD FACS (2) Sepsis Current Visit: Yes Status: Resolved resolved - met criteria with fever, tachycardia, and leukocytosis IV Vancyomycin and Zosyn - awaiting culture sensitivities before de-escalation blood cultures collected Qualifiers: Sepsis type: sepsis due to unspecified organism Qualified Code(s): A41.9 - Sepsis, unspecified organism (3) Diabetes Current Visit: Yes Status: Chronic HgA1c 7.7 diabetic diet medium dose sliding scale Qualifiers: Diabetes mellitus type: type 2 Diabetes mellitus complication status: with circulatory complication Diabetes mellitus complication detail: with peripheral angiopathy with gangrene Diabetes mellitus dedicated intermodal truck driver insulin use: without dedicated intermodal truck driver use Qualified Code(s): E11.52 - Type 2 diabetes mellitus with diabetic peripheral angiopathy with gangrene (4) Coronary artery disease Current Visit: No Status: Chronic s/p drug eluting stent to RCA 2 months prior, no chest pain continue home aspirin and plavix Qualifiers: Coronary Disease-Associated Artery/Lesion type: [place] artery [place] vs. transplanted heart: [place] heart Associated angina: without angina Qualified Code(s): I25.10 - Atherosclerotic heart disease of [place] coronary artery without angina pectoris (5) Peripheral vascular disease Current Visit: Yes Status: Chronic (6) HTN (hypertension) Current Visit: No Status: Chronic well controlled continue home Lisinopril Qualifiers: Hypertension type: essential hypertension Qualified Code(s): I10 - Essential (primary) hypertension (7) HLD (hyperlipidemia) Current Visit: No Status: Chronic Continue home Lipitor Qualifiers: Hyperlipidemia type: mixed hyperlipidemia Qualified Code(s): E78.2 - Mixed hyperlipidemia (8) DVT prophylaxis Current Visit: Yes Status: Acute Heparin 5,000 units SQ BID - Subjective Interval history: Patient states this morning that her pain is worse than yesterday. She has an optimistic outlook going forward at this point. Vital Signs, Last 4 Hours Temp Pulse Resp BP Pulse Ox 10/12/16 08:00 72 16 146/69 98 10/12/16 07:59 98.0 F - Physical Examination General: Present: Conversant, No Apparent Distress, Well developed, Well nourished HEENT: Present: Atraumatic, Normocephaly, Trachea midline Cardiac: Present: Reg Rate and Rhythm Lungs: Present: Normal Breath Sounds Neuro: Present: Alert and responsive, Cranial nerves grossly intact Vascular: Present: Amputation(s) (left AKA, dressing intact and dry) Abdomen: Present: Soft, Non-tender - VTE Documentation of Mechanical Device: Intermittent pneumatic compression device Results 10/13/16 06:38 10/13/16 06:38 Consult Discharge Plan - Plan Referrals: NO,PCP [Primary Care Provider] -
[2016-10-12] MEDS ORDERED: Ketorolac 30 MG/ML VIAL IVP ONE (10:40)
[2016-10-12] MEDS: *HR* HYDROcodone/Acet 5/325 mg TABLET PO PRN ×2 (12:37→23:37)
[2016-10-12] MEDS: Piperacillin/Tazobactam 3.375 GM in D5% in Water (Mini-Bag+) 100 ML IVPB SCH ×2 (16:24→23:33)
[2016-10-12] MEDS: *HR* Heparin 5,000 UNIT/ML VIAL SQ SCH (20:01)
[2016-10-12] MEDS ORDERED: *HR* LORazepam 2 MG/ML VIAL IVP PRN (21:04)
[2016-10-13 06:22] LABS: Bilirubin,Urine Negative (Negative); Blood,Urine Trace (Negative); Clarity,Urine Cloudy (Clear); Color,Urine Yellow (Yellow); Glucose,Urine (UA) Normal (Normal); Ketones,Urine Negative (Negative); Leukocyte Esterase,Urine Negative (Negative); Nitrite,Urine Negative (Negative); PH,Urine 5.5 pH Units (5.0-8.0); Protein,Urine 100 mg/dL (Neg-Trace); Urobilinogen,Urine Normal (Normal)
[2016-10-13 06:24] LABS: Hyaline Casts,Urine None Seen per lpf (None-Few); Squamous Epithelial Cell,Urine Many per lpf (None-Few)
[2016-10-13 06:33] LABS: Bacteria,Urine Few per hpf (None-Few)
[2016-10-13 07:04] LABS: Alanine Aminotransferase 18 Units/L (0-55); Albumin/Globulin Ratio 0.4 (1.1-2.2); Alkaline Phosphatase 50 Units/L (38-126); Aspartate Amino Transferase 46 Units/L (5-34); BUN/Creatinine Ratio 31 (6-26); Basophils % 0.1 %; Bilirubin,Direct 0.1 mg/dL (0.0-0.5); Bilirubin,Indirect 0.1 mg/dL (0.0-1.2); Bilirubin,Total 0.2 mg/dL (0.2-1.2); Blood Urea Nitrogen 32 mg/dL (7-20); Calcium 7.6 mg/dL (8.6-10.8); Carbon Dioxide 19 mEq/L (19-29); Chloride 113 mEq/L (98-109); Eosinophils # 0.1 K/mcL (0.0-0.6); Eosinophils % 0.4 %; Globulin 3.7 g/dL (2.4-3.5); Glucose 180 mg/dL (70-99); Hematocrit 26.2 % (35.3-44.9); Hemoglobin 8.2 g/dL (11.5-15.4); Immature Granulocytes % 0.8 % (0-4); Lymphocytes # 1.8 K/mcL (0.6-4.6); Lymphocytes % 13.7 %; Mean Corpuscular HGB Conc 31.3 g/dL (31.6-35.5); Mean Corpuscular Hemoglobin 27.2 pg (28.0-33.3); Monocytes # 1.1 K/mcL (0.0-1.3); Monocytes % 8.1 %; Neutrophils # 10.3 K/mcL (1.6-8.9); Osmolality,Calculated 297 (280-300); Platelet Count 296 K/mcL (140-400); Potassium 3.7 mEq/L (3.5-4.5); Red Blood Count 3.01 M/mcL (3.82-4.97); Red Cell Distribution Width 14.3 % (11.5-14.5); Segmented Neutrophils % 76.9 %; Sodium 138 mEq/L (136-145); eGFR For African Americans > 60 (> 60); eGFR For Non-African Americans 55 (> 60)
[2016-10-13] MEDS: Piperacillin/Tazobactam 3.375 GM in D5% in Water (Mini-Bag+) 100 ML IVPB SCH ×3 (07:07→23:03)
[2016-10-13] MEDS: *HR* Heparin 5,000 UNIT/ML VIAL SQ SCH ×2 (07:07→20:16)
[2016-10-13] MEDS: Aspirin Enteric Coated 81 MG Tablet PO SCH (07:07)
[2016-10-13] MEDS: 0.9 % Sodium Chloride 1,000 ML IVC SCH ×2 (07:08→15:38)
[2016-10-13] MEDS: Pantoprazole 40 MG VIAL IVP SCH (07:08)
[2016-10-13 07:10] LABS: Albumin 1.4 g/dL (3.5-5.0); Total Protein 5.1 g/dL (6.0-8.3)
[2016-10-13] MEDS: *HR* HYDROcodone/Acet 5/325 mg TABLET PO PRN ×4 (07:17→23:03)
[2016-10-13] MEDS: Insulin LISPRO 300 UNITS/3 ML VIAL SQ SCH ×4 (08:13→20:16)
--- NOTE | 2016-10-13 08:29 | Vascular/Endovas Progress Note ---
Date of Encounter: 10/13/16 Time of Encounter: 08:25 - Assessment and plan (1) Gas gangrene of lower extremity Current Visit: Yes Status: Acute POD #2 left AKA for gas gangrene IVF - rate decreased IV antibiotics - Vancyomycin and Zosyn pain control diabetic diet I examined this patient and my medical decision-making was reviewed with the SR. MEDIA MANAGER/PA/Advanced Practice Nurse/Resident Physician. I agree with the documented findings, disposition and treatment plan as described except to the extent set forth below. 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 transplanted heart: [place] heart Associated angina: without angina Qualified Code(s): I25.10 - Atherosclerotic heart disease of [place] coronary artery without angina pectoris (4) Peripheral vascular disease Current Visit: Yes Status: Chronic (5) HTN (hypertension) Current Visit: No Status: Chronic well controlled continue home Lisinopril Qualifiers: Hypertension type: essential hypertension Qualified Code(s): I10 - Essential (primary) hypertension (6) HLD (hyperlipidemia) Current Visit: No Status: Chronic Continue home Lipitor Qualifiers: Hyperlipidemia type: mixed hyperlipidemia Qualified Code(s): E78.2 - Mixed hyperlipidemia (7) DVT prophylaxis Current Visit: Yes Status: Acute Heparin 5,000 units SQ BID (8) Sepsis Current Visit: Yes Status: Resolved resolved - met criteria with fever, tachycardia, and leukocytosis blood cultures preliminary report - no growth Qualifiers: Sepsis type: sepsis due to unspecified organism Qualified Code(s): A41.9 - Sepsis, unspecified organism - Subjective Interval history: Patient states pain comes and goes. Resting comfortably in bed. Vital Signs, Last 4 Hours Temp Pulse Resp BP Pulse Ox 10/13/16 06:55 97.5 F L 66 14 129/74 100 - Physical Examination General: Present: Conversant, No Apparent Distress, Well developed, Well nourished HEENT: Present: Atraumatic, Normocephaly, Trachea midline Cardiac: Present: Reg Rate and Rhythm Lungs: Present: Normal Breath Sounds Neuro: Present: Alert and responsive Vascular: Present: Amputation(s) (left AKA with clean dry dressing intact) Abdomen: Present: Soft, Non-tender Skin: Present: No rashes noted on visualized skin - VTE Documentation of Mechanical Device: Intermittent pneumatic compression device Results 10/13/16 06:38 10/13/16 06:38 Lab Results, Last 24 hours 10/13/16 10/13/16 06:38 06:38 WBC 13.4 H Hgb 8.2 L D Hct 26.2 L Plt Count 296 Sodium 138 Potassium 3.7 Chloride 113 H Carbon Dioxide 19 BUN 32 H Creatinine 1.02 Glucose 180 H Calcium 7.6 L Total Bilirubin 0.2 AST 46 H ALT 18 Alkaline Phosphatase 50 Consult Discharge Plan - Plan Referrals: NO,PCP [Primary Care Provider] -
[2016-10-13] MEDS: *HR* HYDROmorphone (PF) 1 MG/ML SYRINGE IVP PRN ×2 (09:24→20:16)
--- NOTE | 2016-10-13 15:20 | Internal Med Progress Note ---
Date of Encounter: 10/13/16 Time of Encounter: 08:25 - Assessment and plan (1) Gas gangrene of lower extremity Current Visit: Yes Status: Acute Assessment and plan: Status post left AKA. Continue IV antibiotics and local wound care. Surgery following patient. (2) Anemia Current Visit: Yes Status: Acute Assessment and plan: Present on admission. Worsened today. Hemoglobin 8.2. Likely due to surgical losses. We will continue to monitor blood counts. Qualifiers: Anemia type: other cause Other causes of anemia: other cause, not classified Qualified Code(s): D64.89 - Other specified anemias (3) Diabetes Current Visit: Yes Status: Chronic Assessment and plan: Blood sugars remain elevated. We will start patient on long-acting insulin. Qualifiers: Diabetes mellitus type: type 2 Diabetes mellitus complication status: with circulatory complication Diabetes mellitus complication detail: with peripheral angiopathy with gangrene Diabetes mellitus rat exterminator insulin use: without retirement use Qualified Code(s): E11.52 - Type 2 diabetes mellitus with diabetic peripheral angiopathy with gangrene (4) Sepsis Current Visit: Yes Status: Resolved Assessment and plan: On broad-spectrum antibiotics. Blood cultures have been negative. Qualifiers: Sepsis type: sepsis due to unspecified organism Qualified Code(s): A41.9 - Sepsis, unspecified organism (5) Coronary artery disease Current Visit: No Status: Chronic Assessment and plan: Continue aspirin, Plavix, statin Qualifiers: Coronary Disease-Associated Artery/Lesion type: [place] artery [place] vs. transplanted heart: [place] heart Associated angina: without angina Qualified Code(s): I25.10 - Atherosclerotic heart disease of [place] coronary artery without angina pectoris (6) HLD (hyperlipidemia) Current Visit: No Status: Chronic Assessment and plan: On atorvastatin Qualifiers: Hyperlipidemia type: mixed hyperlipidemia Qualified Code(s): E78.2 - Mixed hyperlipidemia (7) HTN (hypertension) Current Visit: No Status: Chronic Assessment and plan: Well-controlled Qualifiers: Hypertension type: essential hypertension Qualified Code(s): I10 - Essential (primary) hypertension - Subjective Interval history: Patient complaining of intermittent severe pain and left leg site of surgery. Otherwise feels better. Tolerating diet well. Denies any new complaints at this time. - Constitutional Vitals: Temp Pulse Resp BP Pulse Ox 98.0 F 70 16 105/61 100 10/13/16 14:39 10/13/16 14:39 10/13/16 14:39 10/13/16 14:39 10/13/16 14:39 General appearance: Present: cooperative, mild distress, pleasant, answers questions appropriately - Neck Neck exam general surgery: Present: supple, trachea midline. Absent: lymphadenopathy - Respiratory Respiratory exam: Present: CTAB. Absent: accessory muscle use, rales, rhonchi, wheezes - Cardiovascular Cardiovascular exam: Present: RRR, +S1, +S2. Absent: diastolic murmur, gallop, rubs, systolic murmur - GI/Abdominal GI/Abdominal exam: Present: normal bowel sounds, soft, no peritoneal signs. Absent: distended, tenderness - Extremities Exam Extremities exam: Present: warm, radial pulses palpable and symetrical. Absent : calf tenderness, cyanotic, pedal edema Additional comments: Status post left AKA. Currently wound site is bandaged. - Neurological Exam Neurological exam: Present: CN II-XII intact, oriented X3, no focal deficits. Absent: facial droop, speech deficit Internal Medicine: Result - Labs CBC & Chem 7: 10/13/16 06:38 10/13/16 06:38 Labs: Short CBC 10/13/16 Range/Units 06:38 WBC 13.4 H (4.3-11.1) K/mcL Hgb 8.2 L D (11.5-15.4) g/dL Hct 26.2 L (35.3-44.9) % Plt Count 296 (140-400) K/mcL Neutrophils # 10.3 H (1.6-8.9) K/mcL BMP 10/13/16 06:38 Sodium 138 Potassium 3.7 Chloride 113 H Carbon Dioxide 19 BUN 32 H Creatinine 1.02 Glucose 180 H Calcium 7.6 L Liver Function 10/13/16 Range/Units 06:38 Total Bilirubin 0.2 (0.2-1.2) mg/dL Direct Bilirubin 0.1 (0.0-0.5) mg/dL AST 46 H (5-34) Units/L ALT 18 (0-55) Units/L Alkaline Phosphatase 50 (38-126) Units/L Albumin 1.4 L D (3.5-5.0) g/dL Urine 10/13/16 Range/Units 06:17 Urine Color Yellow (Yellow) Urine Clarity Cloudy A (Clear) Urine pH 5.5 (5.0-8.0) pH Units Ur Specific [place] 1.030 H (1.010-1.025) Urine Protein 100 H (Neg-Trace) mg/dL Urine Glucose (UA) Normal (Normal) mg/dL - ABG Interpretation ABG results: PT/INR, D-dimer PT 15.6 Seconds (9.4-12.1) H 10/11/16 15:36 - VTE Documentation of Mechanical Device: Intermittent pneumatic compression device Consult Discharge Plan - Plan Referrals: NO,PCP [Primary Care Provider] - - Attending Attestation This document has been at least partially created by [email or web address] recognition technology by Dr. Penaloza. Errors in grammar, wording or other phrases may exist. If errors are found after the documentation is signed, they will be addressed individually in the addendum section of this document when appropriate. Medical Decision Making - MDM Narrative Medical decision making narrative: Moderate risk for complications - Medical Records Medical records reviewed: Yes I reviewed the patient's medical records. - Lab Data Lab results reviewed: Yes I reviewed the patient's lab results. Result diagrams: 10/13/16 06:38 10/13/16 06:38 Lab Results 10/12/16 10/12/16 10/12/16 Range/Units 07:34 12:35 16:17 WBC (4.3-11.1) K/mcL RBC (3.82-4.97) M/mcL Hgb (11.5-15.4) g/dL Hct (35.3-44.9) % MCV (83.0-100.0) fL MCH (28.0-33.3) pg MCHC (31.6-35.5) g/dL RDW (11.5-14.5) % Plt Count (140-400) K/mcL MPV (9.4-12.4) fL Immature Gran % (0-4) % Seg Neutrophils % % Lymphocytes % % Monocytes % % Eosinophils % % Basophils % % Neutrophils # (1.6-8.9) K/mcL Lymphocytes # (0.6-4.6) K/mcL Monocytes # (0.0-1.3) K/mcL Eosinophils # (0.0-0.6) K/mcL Basophils # (0.0-0.2) K/mcL Sodium (136-145) mEq/L Potassium (3.5-4.5) mEq/L Chloride (98-109) mEq/L Carbon Dioxide (19-29) mEq/L BUN (7-20) mg/dL Creatinine (0.57-1.11) mg/dL Est GFR ( Amer) (> 60) Est GFR (Non-Af Amer) (> 60) BUN/Creatinine Ratio (6-26) Glucose (70-99) mg/dL POC Glucose 271 H 151 H 121 H (58-89) Calculated Osmolality (280-300) Calcium (8.6-10.8) mg/dL Total Bilirubin (0.2-1.2) mg/dL Direct Bilirubin (0.0-0.5) mg/dL Indirect Bilirubin (0.0-1.2) mg/dL AST (5-34) Units/L ALT (0-55) Units/L Alkaline Phosphatase (38-126) Units/L Serum Total Protein (6.0-8.3) g/dL Albumin (3.5-5.0) g/dL Globulin (2.4-3.5) g/dL Albumin/Globulin Ratio (1.1-2.2) Urine Color (Yellow) Urine Clarity (Clear) Urine pH (5.0-8.0) pH Units Ur Specific [place] [address] (1.010-1.025) Urine Protein (Neg-Trace) mg/dL Urine Glucose (UA) (Normal) mg/dL Urine Ketones (Negative) mg/dL Urine Blood (Negative) Urine Nitrite (Negative) Urine Bilirubin (Negative) Urine Urobilinogen (Normal) mg/dL Ur Leukocyte Esterase (Negative) Urine Microscopic RBC (0-3) per hpf Urine Microscopic WBC (0-3) per hpf Ur Squamous Epith Cells (None-Few) per lpf Urine Bacteria (None-Few) per hpf Hyaline Casts (None-Few) per lpf Ur Culture Indicated? (NO) Vancomycin Trough (10-20) mcg/mL 10/12/16 10/13/16 10/13/16 Range/Units 19:54 03:59 06:17 WBC (4.3-11.1) K/mcL RBC (3.82-4.97) M/mcL Hgb (11.5-15.4) g/dL Hct (35.3-44.9) % MCV (83.0-100.0) fL MCH (28.0-33.3) pg MCHC (31.6-35.5) g/dL RDW (11.5-14.5) % Plt Count (140-400) K/mcL MPV (9.4-12.4) fL Immature Gran % (0-4) % Seg Neutrophils % % Lymphocytes % % Monocytes % % Eosinophils % % Basophils % % Neutrophils # (1.6-8.9) K/mcL Lymphocytes # (0.6-4.6) K/mcL Monocytes # (0.0-1.3) K/mcL Eosinophils # (0.0-0.6) K/mcL Basophils # (0.0-0.2) K/mcL Sodium (136-145) mEq/L Potassium (3.5-4.5) mEq/L Chloride (98-109) mEq/L Carbon Dioxide (19-29) mEq/L BUN (7-20) mg/dL Creatinine (0.57-1.11) mg/dL Est GFR ( Amer) (> 60) Est GFR (Non-Af Amer) (> 60) BUN/Creatinine Ratio (6-26) Glucose (70-99) mg/dL POC Glucose 214 H (58-89) Calculated Osmolality (280-300) Calcium (8.6-10.8) mg/dL Total Bilirubin (0.2-1.2) mg/dL Direct Bilirubin (0.0-0.5) mg/dL Indirect Bilirubin (0.0-1.2) mg/dL AST (5-34) Units/L ALT (0-55) Units/L Alkaline Phosphatase (38-126) Units/L Serum Total Protein (6.0-8.3) g/dL Albumin (3.5-5.0) g/dL Globulin (2.4-3.5) g/dL Albumin/Globulin Ratio (1.1-2.2) Urine Color Yellow (Yellow) Urine Clarity Cloudy A (Clear) Urine pH 5.5 (5.0-8.0) pH Units Ur Specific [place] [address] 1.030 H (1.010-1.025) Urine Protein 100 H (Neg-Trace) mg/dL Urine Glucose (UA) Normal (Normal) mg/dL Urine Ketones Negative (Negative) mg/dL Urine Blood Trace H (Negative) Urine Nitrite Negative (Negative) Urine Bilirubin Negative (Negative) Urine Urobilinogen Normal (Normal) mg/dL Ur Leukocyte Esterase Negative (Negative) Urine Microscopic RBC 5-15 H (0-3) per hpf Urine Microscopic WBC 3-5 H (0-3) per hpf Ur Squamous Epith Cells Many H (None-Few) per lpf Urine Bacteria Few (None-Few) per hpf Hyaline Casts None Seen (None-Few) per lpf Ur Culture Indicated? NO (NO) Vancomycin Trough 23.9 H* (10-20) mcg/mL 10/13/16 10/13/16 10/13/16 Range/Units 06:38 06:38 07:30 WBC 13.4 H (4.3-11.1) K/mcL RBC 3.01 L (3.82-4.97) M/mcL Hgb 8.2 L D (11.5-15.4) g/dL Hct 26.2 L (35.3-44.9) % MCV 87.0 (83.0-100.0) fL MCH 27.2 L (28.0-33.3) pg MCHC 31.3 L (31.6-35.5) g/dL RDW 14.3 (11.5-14.5) % Plt Count 296 (140-400) K/mcL MPV 11.0 (9.4-12.4) fL Immature Gran % 0.8 (0-4) % Seg Neutrophils % 76.9 % Lymphocytes % 13.7 % Monocytes % 8.1 % Eosinophils % 0.4 % Basophils % 0.1 % Neutrophils # 10.3 H (1.6-8.9) K/mcL Lymphocytes # 1.8 (0.6-4.6) K/mcL Monocytes # 1.1 (0.0-1.3) K/mcL Eosinophils # 0.1 (0.0-0.6) K/mcL Basophils # 0.0 (0.0-0.2) K/mcL Sodium 138 (136-145) mEq/L Potassium 3.7 (3.5-4.5) mEq/L Chloride 113 H (98-109) mEq/L Carbon Dioxide 19 (19-29) mEq/L BUN 32 H (7-20) mg/dL Creatinine 1.02 (0.57-1.11) mg/dL Est GFR ( Amer) > 60 (> 60) Est GFR (Non-Af Amer) 55 L (> 60) BUN/Creatinine Ratio 31 H (6-26) Glucose 180 H (70-99) mg/dL POC Glucose 172 H (58-89) Calculated Osmolality 297 (280-300) Calcium 7.6 L (8.6-10.8) mg/dL Total Bilirubin 0.2 (0.2-1.2) mg/dL Direct Bilirubin 0.1 (0.0-0.5) mg/dL Indirect Bilirubin 0.1 (0.0-1.2) mg/dL AST 46 H (5-34) Units/L ALT 18 (0-55) Units/L Alkaline Phosphatase 50 (38-126) Units/L Serum Total Protein 5.1 L D (6.0-8.3) g/dL Albumin 1.4 L D (3.5-5.0) g/dL Globulin 3.7 H (2.4-3.5) g/dL Albumin/Globulin Ratio 0.4 L (1.1-2.2) Urine Color (Yellow) Urine Clarity (Clear) Urine pH (5.0-8.0) pH Units Ur Specific [place] [address] (1.010-1.025) Urine Protein (Neg-Trace) mg/dL Urine Glucose (UA) (Normal) mg/dL Urine Ketones (Negative) mg/dL Urine Blood (Negative) Urine Nitrite (Negative) Urine Bilirubin (Negative) Urine Urobilinogen (Normal) mg/dL Ur Leukocyte Esterase (Negative) Urine Microscopic RBC (0-3) per hpf Urine Microscopic WBC (0-3) per hpf Ur Squamous Epith Cells (None-Few) per lpf Urine Bacteria (None-Few) per hpf Hyaline Casts (None-Few) per lpf Ur Culture Indicated? (NO) Vancomycin Trough (10-20) mcg/mL 10/13/16 Range/Units 11:13 WBC (4.3-11.1) K/mcL RBC (3.82-4.97) M/mcL Hgb (11.5-15.4) g/dL Hct (35.3-44.9) % MCV (83.0-100.0) fL MCH (28.0-33.3) pg MCHC (31.6-35.5) g/dL RDW (11.5-14.5) % Plt Count (140-400) K/mcL MPV (9.4-12.4) fL Immature Gran % (0-4) % Seg Neutrophils % % Lymphocytes % % Monocytes % % Eosinophils % % Basophils % % Neutrophils # (1.6-8.9) K/mcL Lymphocytes # (0.6-4.6) K/mcL Monocytes # (0.0-1.3) K/mcL Eosinophils # (0.0-0.6) K/mcL Basophils # (0.0-0.2) K/mcL Sodium (136-145) mEq/L Potassium (3.5-4.5) mEq/L Chloride (98-109) mEq/L Carbon Dioxide (19-29) mEq/L BUN (7-20) mg/dL Creatinine (0.57-1.11) mg/dL Est GFR ( Amer) (> 60) Est GFR (Non-Af Amer) (> 60) BUN/Creatinine Ratio (6-26) Glucose (70-99) mg/dL POC Glucose 223 H (58-89) Calculated Osmolality (280-300) Calcium (8.6-10.8) mg/dL Total Bilirubin (0.2-1.2) mg/dL Direct Bilirubin (0.0-0.5) mg/dL Indirect Bilirubin (0.0-1.2) mg/dL AST (5-34) Units/L ALT (0-55) Units/L Alkaline Phosphatase (38-126) Units/L Serum Total Protein (6.0-8.3) g/dL Albumin (3.5-5.0) g/dL Globulin (2.4-3.5) g/dL Albumin/Globulin Ratio (1.1-2.2) Urine Color (Yellow) Urine Clarity (Clear) Urine pH (5.0-8.0) pH Units Ur Specific [place] [address] (1.010-1.025) Urine Protein (Neg-Trace) mg/dL Urine Glucose (UA) (Normal) mg/dL Urine Ketones (Negative) mg/dL Urine Blood (Negative) Urine Nitrite (Negative) Urine Bilirubin (Negative) Urine Urobilinogen (Normal) mg/dL Ur Leukocyte Esterase (Negative) Urine Microscopic RBC (0-3) per hpf Urine Microscopic WBC (0-3) per hpf Ur Squamous Epith Cells (None-Few) per lpf Urine Bacteria (None-Few) per hpf Hyaline Casts (None-Few) per lpf Ur Culture Indicated? (NO) Vancomycin Trough (10-20) mcg/mL
[2016-10-13] MEDS ORDERED: Vancomycin 1,000 MG in D5% in Water 250 ML IVPB ONE (18:00)
[2016-10-13] MEDS: Insulin DETEMIR 100 UNIT/ML X5UNITS SQ SCH (20:17)
[2016-10-14 00:56] LABS: Basophils % 0.2 %; Eosinophils # 0.1 K/mcL (0.0-0.6); Eosinophils % 0.9 %; Hematocrit 28.3 % (35.3-44.9); Hemoglobin 8.7 g/dL (11.5-15.4); Immature Granulocytes % 0.6 % (0-4); Lymphocytes # 2.4 K/mcL (0.6-4.6); Lymphocytes % 18.4 %; Mean Corpuscular HGB Conc 30.7 g/dL (31.6-35.5); Mean Corpuscular Hemoglobin 26.7 pg (28.0-33.3); Mean Corpuscular Volume 86.8 fL (83.0-100.0); Mean Platelet Volume 10.7 fL (9.4-12.4); Monocytes # 0.9 K/mcL (0.0-1.3); Monocytes % 7.3 %; Neutrophils # 9.3 K/mcL (1.6-8.9); Platelet Count 363 K/mcL (140-400); Red Blood Count 3.26 M/mcL (3.82-4.97); Red Cell Distribution Width 14.3 % (11.5-14.5); Segmented Neutrophils % 72.6 %
[2016-10-14] MEDS: *HR* HYDROmorphone (PF) 1 MG/ML SYRINGE IVP PRN ×3 (00:57→11:14)
[2016-10-14 01:11] LABS: BUN/Creatinine Ratio 28 (6-26); Blood Urea Nitrogen 22 mg/dL (7-20); Calcium 7.7 mg/dL (8.6-10.8); Carbon Dioxide 19 mEq/L (19-29); Chloride 112 mEq/L (98-109); Glucose 120 mg/dL (70-99); Osmolality,Calculated 289 (280-300); Potassium 3.5 mEq/L (3.5-4.5); Sodium 137 mEq/L (136-145); eGFR For African Americans > 60 (> 60); eGFR For Non-African Americans > 60 (> 60)
[2016-10-14] MEDS: 0.9 % Sodium Chloride 1,000 ML IVC SCH ×3 (06:24→20:51)
--- NOTE | 2016-10-14 08:13 | Vascular/Endovas Progress Note ---
Date of Encounter: 10/14/16 Time of Encounter: 08:11 - Assessment and plan (1) Gas gangrene of lower extremity Current Visit: Yes Status: Acute POD #3 left AKA for gas gangrene IVF IV antibiotics - Vancyomycin and Zosyn pain control diabetic diet PT/OT consult I examined this patient and my medical decision-making was reviewed with the [employer] SERGEANT/PA/Advanced Practice Nurse/Resident Physician. I agree with the documented findings, disposition and treatment plan as described except to the extent set forth below. Tevin Pacheco MD FACS (2) Diabetes Current Visit: Yes Status: Chronic HgA1c 7.7 diabetic diet medium dose sliding scale levemir 10 units BID Qualifiers: Diabetes mellitus type: type 2 Diabetes mellitus complication status: with circulatory complication Diabetes mellitus complication detail: with peripheral angiopathy with gangrene Diabetes mellitus group home insulin use: without long lines operator use Qualified Code(s): E11.52 - Type 2 diabetes mellitus with diabetic peripheral angiopathy with gangrene (3) Coronary artery disease Current Visit: No Status: Chronic s/p drug eluting stent to RCA 2 months prior continue home aspirin, plavix, and statin Qualifiers: Coronary Disease-Associated Artery/Lesion type: [place] artery [place] vs. transplanted heart: [place] heart Associated angina: without angina Qualified Code(s): I25.10 - Atherosclerotic heart disease of [place] coronary artery without angina pectoris (4) Peripheral vascular disease Current Visit: Yes Status: Chronic (5) HTN (hypertension) Current Visit: No Status: Chronic well controlled continue home Lisinopril Qualifiers: Hypertension type: essential hypertension Qualified Code(s): I10 - Essential (primary) hypertension (6) HLD (hyperlipidemia) Current Visit: No Status: Chronic Continue home Lipitor Qualifiers: Hyperlipidemia type: mixed hyperlipidemia Qualified Code(s): E78.2 - Mixed hyperlipidemia (7) DVT prophylaxis Current Visit: Yes Status: Acute Heparin 5,000 units SQ BID (8) Sepsis Current Visit: Yes Status: Resolved resolved - met criteria with fever, tachycardia, and leukocytosis blood cultures preliminary report - no growth Qualifiers: Sepsis type: sepsis due to unspecified organism Qualified Code(s): A41.9 - Sepsis, unspecified organism - Subjective Interval history: Patient states pain is still severe at times. Vital Signs, Last 4 Hours Temp Pulse Resp BP Pulse Ox 10/14/16 07:00 97.4 F L 72 16 148/74 96 10/14/16 04:44 98.2 F 88 18 138/78 96 - Physical Examination General: Present: Well developed, Well nourished HEENT: Present: Atraumatic, Normocephaly, Trachea midline Cardiac: Present: Reg Rate and Rhythm Lungs: Present: Normal Breath Sounds Neuro: Present: Alert and responsive, Cranial nerves grossly intact Vascular: Present: Amputation(s) (left AKA; incision intact, clean and dry) Abdomen: Present: Soft, Non-tender Skin: Present: No rashes noted on visualized skin - VTE Documentation of Mechanical Device: Intermittent pneumatic compression device Results 10/16/16 04:52 10/16/16 04:52 Lab Results, Last 24 hours 10/14/16 10/14/16 00:47 00:47 WBC 12.8 H Hgb 8.7 L Hct 28.3 L Plt Count 363 Sodium 137 Potassium 3.5 Chloride 112 H Carbon Dioxide 19 BUN 22 H D Creatinine 0.80 Glucose 120 H Calcium 7.7 L Consult Discharge Plan - Plan Referrals: NO,PCP [Primary Care Provider] - Prescriptions: OxyCODONE/APAP 5/325 [Percocet 5/325 MG] 1 each PO Q6HR PRN #10 tablet PRN Reason: Pain Ciprofloxacin [Cipro] 500 mg PO BID #10 tablet Ferrous Sulfate 325 mg PO DAILY@0800 #30 tablet
[2016-10-14] MEDS: Aspirin Enteric Coated 81 MG Tablet PO SCH (08:51)
[2016-10-14] MEDS: Pantoprazole 40 MG VIAL IVP SCH (08:52)
[2016-10-14] MEDS: *HR* Heparin 5,000 UNIT/ML VIAL SQ SCH ×2 (08:52→20:26)
[2016-10-14] MEDS: Insulin LISPRO 300 UNITS/3 ML VIAL SQ SCH ×4 (08:52→20:54)
[2016-10-14] MEDS: Piperacillin/Tazobactam 3.375 GM in D5% in Water (Mini-Bag+) 100 ML IVPB SCH ×2 (08:53→17:20)
[2016-10-14] MEDS: *HR* HYDROcodone/Acet 5/325 mg TABLET PO PRN (09:01)
[2016-10-14] MEDS: Insulin DETEMIR 100 UNIT/ML X5UNITS SQ SCH ×2 (09:02→20:54)
[2016-10-14] MEDS ORDERED: Aminoglycoside Consult 1 EACH MC ONE (10:51)
[2016-10-14] MEDS ORDERED: *HR* HYDROmorphone 2 MG/ML SYRINGE IVP PRN (11:19)
--- NOTE | 2016-10-14 11:20 | Internal Med Progress Note ---
Date of Encounter: 10/14/16 Time of Encounter: 11:17 - Assessment and plan (1) Gas gangrene of lower extremity Current Visit: Yes Status: Acute Assessment and plan: Status post left AKA. On vancomycin and Zosyn. Cultures have been negative so far. We will stop vancomycin. Continue Zosyn. Will adjust pain medications to control pain better (2) Anemia Current Visit: Yes Status: Acute Assessment and plan: Hemoglobin is 8.7. Improved. Continue to monitor blood counts. 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 Qualifiers: Coronary Disease-Associated Artery/Lesion type: [place] artery [place] vs. transplanted heart: [place] heart Associated angina: without angina Qualified Code(s): I25.10 - Atherosclerotic heart disease of [place] coronary artery without angina pectoris (6) HLD (hyperlipidemia) Current Visit: No Status: Chronic Assessment and plan: On statin Qualifiers: Hyperlipidemia type: mixed hyperlipidemia Qualified Code(s): E78.2 - Mixed hyperlipidemia (7) HTN (hypertension) Current Visit: No Status: Chronic Assessment and plan: blood pressure is slightly elevated today. Likely due to pain. We will continue to monitor blood pressure. If persistently elevated. Will increase lisinopril dosage. Qualifiers: Hypertension type: essential hypertension Qualified Code(s): I10 - Essential (primary) hypertension - Subjective Interval history: Complaints of pain. Not being controlled by her current pain medication regimen. Tolerating diet well. Denies any other complaints at this time. - Constitutional Vitals: Temp Pulse Resp BP Pulse Ox 97.4 F L 72 16 148/74 96 10/14/16 07:00 10/14/16 07:00 10/14/16 07:00 10/14/16 07:00 10/14/16 07:00 General appearance: Present: cooperative, mild distress, pleasant, answers questions appropriately - Respiratory Respiratory exam: Present: CTAB. Absent: accessory muscle use, rales, rhonchi, wheezes - Cardiovascular Cardiovascular exam: Present: RRR, +S1, +S2. Absent: diastolic murmur, gallop, rubs, systolic murmur - Extremities Exam Additional comments: Status post left AKA. Stump incision appears clean. Tender to palpation. - Neurological Exam Neurological exam: Present: oriented X3, no focal deficits, strengths equal and symetr throughout. Absent: facial droop, speech deficit - Skin Skin exam: Present: dry, intact Internal Medicine: Result - Labs CBC & Chem 7: 10/14/16 00:47 10/14/16 00:47 Labs: Short CBC 10/14/16 Range/Units 00:47 WBC 12.8 H (4.3-11.1) K/mcL Hgb 8.7 L (11.5-15.4) g/dL Hct 28.3 L (35.3-44.9) % Plt Count 363 (140-400) K/mcL Neutrophils # 9.3 H (1.6-8.9) K/mcL BMP 10/14/16 00:47 Sodium 137 Potassium 3.5 Chloride 112 H Carbon Dioxide 19 BUN 22 H D Creatinine 0.80 Glucose 120 H Calcium 7.7 L - ABG Interpretation ABG results: PT/INR, D-dimer PT 15.6 Seconds (9.4-12.1) H 10/11/16 15:36 - VTE Documentation of Mechanical Device: Intermittent pneumatic compression device Consult Discharge Plan - Plan Referrals: Lizbet Wasserman CNP [Advanced Practice Nurse] - 10/24/16 10:15 am - Attending Attestation This document has been at least partially created by [employer] recognition technology by Dr. Penaloza. Errors in grammar, wording or other phrases may exist. If errors are found after the documentation is signed, they will be addressed individually in the addendum section of this document when appropriate. Medical Decision Making - MDM Narrative Medical decision making narrative: High risk for complications due to gas gangrene, intravenous narcotic pain medication use. - Lab Data Lab results reviewed: Yes I reviewed the patient's lab results. Result diagrams: 10/14/16 00:47 10/14/16 00:47 Lab Results 10/12/16 10/12/16 10/12/16 Range/Units 07:34 12:35 16:17 WBC (4.3-11.1) K/mcL RBC (3.82-4.97) M/mcL Hgb (11.5-15.4) g/dL Hct (35.3-44.9) % MCV (83.0-100.0) fL MCH (28.0-33.3) pg MCHC (31.6-35.5) g/dL RDW (11.5-14.5) % Plt Count (140-400) K/mcL MPV (9.4-12.4) fL Immature Gran % (0-4) % Seg Neutrophils % % Lymphocytes % % Monocytes % % Eosinophils % % Basophils % % Neutrophils # (1.6-8.9) K/mcL Lymphocytes # (0.6-4.6) K/mcL Monocytes # (0.0-1.3) K/mcL Eosinophils # (0.0-0.6) K/mcL Basophils # (0.0-0.2) K/mcL Sodium (136-145) mEq/L Potassium (3.5-4.5) mEq/L Chloride (98-109) mEq/L Carbon Dioxide (19-29) mEq/L BUN (7-20) mg/dL Creatinine (0.57-1.11) mg/dL Est GFR ( Amer) (> 60) Est GFR (Non-Af Amer) (> 60) BUN/Creatinine Ratio (6-26) Glucose (70-99) mg/dL POC Glucose 271 H 151 H 121 H (58-89) Calculated Osmolality (280-300) Calcium (8.6-10.8) mg/dL Total Bilirubin (0.2-1.2) mg/dL Direct Bilirubin (0.0-0.5) mg/dL Indirect Bilirubin (0.0-1.2) mg/dL AST (5-34) Units/L ALT (0-55) Units/L Alkaline Phosphatase (38-126) Units/L Serum Total Protein (6.0-8.3) g/dL Albumin (3.5-5.0) g/dL Globulin (2.4-3.5) g/dL Albumin/Globulin Ratio (1.1-2.2) Urine Color (Yellow) Urine Clarity (Clear) Urine pH (5.0-8.0) pH Units Ur Specific [place] (1.010-1.025) Urine Protein (Neg-Trace) mg/dL Urine Glucose (UA) (Normal) mg/dL Urine Ketones (Negative) mg/dL Urine Blood (Negative) Urine Nitrite (Negative) Urine Bilirubin (Negative) Urine Urobilinogen (Normal) mg/dL Ur Leukocyte Esterase (Negative) Urine Microscopic RBC (0-3) per hpf Urine Microscopic WBC (0-3) per hpf Ur Squamous Epith Cells (None-Few) per lpf Urine Bacteria (None-Few) per hpf Hyaline Casts (None-Few) per lpf Ur Culture Indicated? (NO) Vancomycin Trough (10-20) mcg/mL Random Vancomycin mcg/mL 10/12/16 10/13/16 10/13/16 Range/Units 19:54 03:59 06:17 WBC (4.3-11.1) K/mcL RBC (3.82-4.97) M/mcL Hgb (11.5-15.4) g/dL Hct (35.3-44.9) % MCV (83.0-100.0) fL MCH (28.0-33.3) pg MCHC (31.6-35.5) g/dL RDW (11.5-14.5) % Plt Count (140-400) K/mcL MPV (9.4-12.4) fL Immature Gran % (0-4) % Seg Neutrophils % % Lymphocytes % % Monocytes % % Eosinophils % % Basophils % % Neutrophils # (1.6-8.9) K/mcL Lymphocytes # (0.6-4.6) K/mcL Monocytes # (0.0-1.3) K/mcL Eosinophils # (0.0-0.6) K/mcL Basophils # (0.0-0.2) K/mcL Sodium (136-145) mEq/L Potassium (3.5-4.5) mEq/L Chloride (98-109) mEq/L Carbon Dioxide (19-29) mEq/L BUN (7-20) mg/dL Creatinine (0.57-1.11) mg/dL Est GFR ( Amer) (> 60) Est GFR (Non-Af Amer) (> 60) BUN/Creatinine Ratio (6-26) Glucose (70-99) mg/dL POC Glucose 214 H (58-89) Calculated Osmolality (280-300) Calcium (8.6-10.8) mg/dL Total Bilirubin (0.2-1.2) mg/dL Direct Bilirubin (0.0-0.5) mg/dL Indirect Bilirubin (0.0-1.2) mg/dL AST (5-34) Units/L ALT (0-55) Units/L Alkaline Phosphatase (38-126) Units/L Serum Total Protein (6.0-8.3) g/dL Albumin (3.5-5.0) g/dL Globulin (2.4-3.5) g/dL Albumin/Globulin Ratio (1.1-2.2) Urine Color Yellow (Yellow) Urine Clarity Cloudy A (Clear) Urine pH 5.5 (5.0-8.0) pH Units Ur Specific [place] 1.030 H (1.010-1.025) Urine Protein 100 H (Neg-Trace) mg/dL Urine Glucose (UA) Normal (Normal) mg/dL Urine Ketones Negative (Negative) mg/dL Urine Blood Trace H (Negative) Urine Nitrite Negative (Negative) Urine Bilirubin Negative (Negative) Urine Urobilinogen Normal (Normal) mg/dL Ur Leukocyte Esterase Negative (Negative) Urine Microscopic RBC 5-15 H (0-3) per hpf Urine Microscopic WBC 3-5 H (0-3) per hpf Ur Squamous Epith Cells Many H (None-Few) per lpf Urine Bacteria Few (None-Few) per hpf Hyaline Casts None Seen (None-Few) per lpf Ur Culture Indicated? NO (NO) Vancomycin Trough 23.9 H* (10-20) mcg/mL Random Vancomycin mcg/mL 10/13/16 10/13/16 10/13/16 Range/Units 06:38 06:38 07:30 WBC 13.4 H (4.3-11.1) K/mcL RBC 3.01 L (3.82-4.97) M/mcL Hgb 8.2 L D (11.5-15.4) g/dL Hct 26.2 L (35.3-44.9) % MCV 87.0 (83.0-100.0) fL MCH 27.2 L (28.0-33.3) pg MCHC 31.3 L (31.6-35.5) g/dL RDW 14.3 (11.5-14.5) % Plt Count 296 (140-400) K/mcL MPV 11.0 (9.4-12.4) fL Immature Gran % 0.8 (0-4) % Seg Neutrophils % 76.9 % Lymphocytes % 13.7 % Monocytes % 8.1 % Eosinophils % 0.4 % Basophils % 0.1 % Neutrophils # 10.3 H (1.6-8.9) K/mcL Lymphocytes # 1.8 (0.6-4.6) K/mcL Monocytes # 1.1 (0.0-1.3) K/mcL Eosinophils # 0.1 (0.0-0.6) K/mcL Basophils # 0.0 (0.0-0.2) K/mcL Sodium 138 (136-145) mEq/L Potassium 3.7 (3.5-4.5) mEq/L Chloride 113 H (98-109) mEq/L Carbon Dioxide 19 (19-29) mEq/L BUN 32 H (7-20) mg/dL Creatinine 1.02 (0.57-1.11) mg/dL Est GFR ( Amer) > 60 (> 60) Est GFR (Non-Af Amer) 55 L (> 60) BUN/Creatinine Ratio 31 H (6-26) Glucose 180 H (70-99) mg/dL POC Glucose 172 H (58-89) Calculated Osmolality 297 (280-300) Calcium 7.6 L (8.6-10.8) mg/dL Total Bilirubin 0.2 (0.2-1.2) mg/dL Direct Bilirubin 0.1 (0.0-0.5) mg/dL Indirect Bilirubin 0.1 (0.0-1.2) mg/dL AST 46 H (5-34) Units/L ALT 18 (0-55) Units/L Alkaline Phosphatase 50 (38-126) Units/L Serum Total Protein 5.1 L D (6.0-8.3) g/dL Albumin 1.4 L D (3.5-5.0) g/dL Globulin 3.7 H (2.4-3.5) g/dL Albumin/Globulin Ratio 0.4 L (1.1-2.2) Urine Color (Yellow) Urine Clarity (Clear) Urine pH (5.0-8.0) pH Units Ur Specific [place] (1.010-1.025) Urine Protein (Neg-Trace) mg/dL Urine Glucose (UA) (Normal) mg/dL Urine Ketones (Negative) mg/dL Urine Blood (Negative) Urine Nitrite (Negative) Urine Bilirubin (Negative) Urine Urobilinogen (Normal) mg/dL Ur Leukocyte Esterase (Negative) Urine Microscopic RBC (0-3) per hpf Urine Microscopic WBC (0-3) per hpf Ur Squamous Epith Cells (None-Few) per lpf Urine Bacteria (None-Few) per hpf Hyaline Casts (None-Few) per lpf Ur Culture Indicated? (NO) Vancomycin Trough (10-20) mcg/mL Random Vancomycin mcg/mL 10/13/16 10/13/16 10/13/16 Range/Units 11:13 16:09 20:11 WBC (4.3-11.1) K/mcL RBC (3.82-4.97) M/mcL Hgb (11.5-15.4) g/dL Hct (35.3-44.9) % MCV (83.0-100.0) fL MCH (28.0-33.3) pg MCHC (31.6-35.5) g/dL RDW (11.5-14.5) % Plt Count (140-400) K/mcL MPV (9.4-12.4) fL Immature Gran % (0-4) % Seg Neutrophils % % Lymphocytes % % Monocytes % % Eosinophils % % Basophils % % Neutrophils # (1.6-8.9) K/mcL Lymphocytes # (0.6-4.6) K/mcL Monocytes # (0.0-1.3) K/mcL Eosinophils # (0.0-0.6) K/mcL Basophils # (0.0-0.2) K/mcL Sodium (136-145) mEq/L Potassium (3.5-4.5) mEq/L Chloride (98-109) mEq/L Carbon Dioxide (19-29) mEq/L BUN (7-20) mg/dL Creatinine (0.57-1.11) mg/dL Est GFR ( Amer) (> 60) Est GFR (Non-Af Amer) (> 60) BUN/Creatinine Ratio (6-26) Glucose (70-99) mg/dL POC Glucose 223 H 183 H 177 H (58-89) Calculated Osmolality (280-300) Calcium (8.6-10.8) mg/dL Total Bilirubin (0.2-1.2) mg/dL Direct Bilirubin (0.0-0.5) mg/dL Indirect Bilirubin (0.0-1.2) mg/dL AST (5-34) Units/L ALT (0-55) Units/L Alkaline Phosphatase (38-126) Units/L Serum Total Protein (6.0-8.3) g/dL Albumin (3.5-5.0) g/dL Globulin (2.4-3.5) g/dL Albumin/Globulin Ratio (1.1-2.2) Urine Color (Yellow) Urine Clarity (Clear) Urine pH (5.0-8.0) pH Units Ur Specific [place] (1.010-1.025) Urine Protein (Neg-Trace) mg/dL Urine Glucose (UA) (Normal) mg/dL Urine Ketones (Negative) mg/dL Urine Blood (Negative) Urine Nitrite (Negative) Urine Bilirubin (Negative) Urine Urobilinogen (Normal) mg/dL Ur Leukocyte Esterase (Negative) Urine Microscopic RBC (0-3) per hpf Urine Microscopic WBC (0-3) per hpf Ur Squamous Epith Cells (None-Few) per lpf Urine Bacteria (None-Few) per hpf Hyaline Casts (None-Few) per lpf Ur Culture Indicated? (NO) Vancomycin Trough (10-20) mcg/mL Random Vancomycin mcg/mL 10/14/16 10/14/16 10/14/16 Range/Units 00:47 00:47 00:47 WBC 12.8 H (4.3-11.1) K/mcL RBC 3.26 L (3.82-4.97) M/mcL Hgb 8.7 L (11.5-15.4) g/dL Hct 28.3 L (35.3-44.9) % MCV 86.8 (83.0-100.0) fL MCH 26.7 L (28.0-33.3) pg MCHC 30.7 L (31.6-35.5) g/dL RDW 14.3 (11.5-14.5) % Plt Count 363 (140-400) K/mcL MPV 10.7 (9.4-12.4) fL Immature Gran % 0.6 (0-4) % Seg Neutrophils % 72.6 % Lymphocytes % 18.4 % Monocytes % 7.3 % Eosinophils % 0.9 % Basophils % 0.2 % Neutrophils # 9.3 H (1.6-8.9) K/mcL Lymphocytes # 2.4 (0.6-4.6) K/mcL Monocytes # 0.9 (0.0-1.3) K/mcL Eosinophils # 0.1 (0.0-0.6) K/mcL Basophils # 0.0 (0.0-0.2) K/mcL Sodium 137 (136-145) mEq/L Potassium 3.5 (3.5-4.5) mEq/L Chloride 112 H (98-109) mEq/L Carbon Dioxide 19 (19-29) mEq/L BUN 22 H D (7-20) mg/dL Creatinine 0.80 (0.57-1.11) mg/dL Est GFR ( Amer) > 60 (> 60) Est GFR (Non-Af Amer) > 60 (> 60) BUN/Creatinine Ratio 28 H (6-26) Glucose 120 H (70-99) mg/dL POC Glucose (58-89) Calculated Osmolality 289 (280-300) Calcium 7.7 L (8.6-10.8) mg/dL Total Bilirubin (0.2-1.2) mg/dL Direct Bilirubin (0.0-0.5) mg/dL Indirect Bilirubin (0.0-1.2) mg/dL AST (5-34) Units/L ALT (0-55) Units/L Alkaline Phosphatase (38-126) Units/L Serum Total Protein (6.0-8.3) g/dL Albumin (3.5-5.0) g/dL Globulin (2.4-3.5) g/dL Albumin/Globulin Ratio (1.1-2.2) Urine Color (Yellow) Urine Clarity (Clear) Urine pH (5.0-8.0) pH Units Ur Specific [place] (1.010-1.025) Urine Protein (Neg-Trace) mg/dL Urine Glucose (UA) (Normal) mg/dL Urine Ketones (Negative) mg/dL Urine Blood (Negative) Urine Nitrite (Negative) Urine Bilirubin (Negative) Urine Urobilinogen (Normal) mg/dL Ur Leukocyte Esterase (Negative) Urine Microscopic RBC (0-3) per hpf Urine Microscopic WBC (0-3) per hpf Ur Squamous Epith Cells (None-Few) per lpf Urine Bacteria (None-Few) per hpf Hyaline Casts (None-Few) per lpf Ur Culture Indicated? (NO) Vancomycin Trough (10-20) mcg/mL Random Vancomycin 24.2 mcg/mL 10/14/16 Range/Units 07:33 WBC (4.3-11.1) K/mcL RBC (3.82-4.97) M/mcL Hgb (11.5-15.4) g/dL Hct (35.3-44.9) % MCV (83.0-100.0) fL MCH (28.0-33.3) pg MCHC (31.6-35.5) g/dL RDW (11.5-14.5) % Plt Count (140-400) K/mcL MPV (9.4-12.4) fL Immature Gran % (0-4) % Seg Neutrophils % % Lymphocytes % % Monocytes % % Eosinophils % % Basophils % % Neutrophils # (1.6-8.9) K/mcL Lymphocytes # (0.6-4.6) K/mcL Monocytes # (0.0-1.3) K/mcL Eosinophils # (0.0-0.6) K/mcL Basophils # (0.0-0.2) K/mcL Sodium (136-145) mEq/L Potassium (3.5-4.5) mEq/L Chloride (98-109) mEq/L Carbon Dioxide (19-29) mEq/L BUN (7-20) mg/dL Creatinine (0.57-1.11) mg/dL Est GFR ( Amer) (> 60) Est GFR (Non-Af Amer) (> 60) BUN/Creatinine Ratio (6-26) Glucose (70-99) mg/dL POC Glucose 93 H (58-89) Calculated Osmolality (280-300) Calcium (8.6-10.8) mg/dL Total Bilirubin (0.2-1.2) mg/dL Direct Bilirubin (0.0-0.5) mg/dL Indirect Bilirubin (0.0-1.2) mg/dL AST (5-34) Units/L ALT (0-55) Units/L Alkaline Phosphatase (38-126) Units/L Serum Total Protein (6.0-8.3) g/dL Albumin (3.5-5.0) g/dL Globulin (2.4-3.5) g/dL Albumin/Globulin Ratio (1.1-2.2) Urine Color (Yellow) Urine Clarity (Clear) Urine pH (5.0-8.0) pH Units Ur Specific [place] (1.010-1.025) Urine Protein (Neg-Trace) mg/dL Urine Glucose (UA) (Normal) mg/dL Urine Ketones (Negative) mg/dL Urine Blood (Negative) Urine Nitrite (Negative) Urine Bilirubin (Negative) Urine Urobilinogen (Normal) mg/dL Ur Leukocyte Esterase (Negative) Urine Microscopic RBC (0-3) per hpf Urine Microscopic WBC (0-3) per hpf Ur Squamous Epith Cells (None-Few) per lpf Urine Bacteria (None-Few) per hpf Hyaline Casts (None-Few) per lpf Ur Culture Indicated? (NO) Vancomycin Trough (10-20) mcg/mL Random Vancomycin mcg/mL
--- NOTE | 2016-10-14 12:06 | Electrocardiograph Report ---
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
--- NOTE | 2016-10-14 12:11 | Electrocardiograph Report ---
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
[2016-10-14] MEDS: *HR* OxyCODONE Immed Rel 5 MG TABLET PO PRN ×2 (13:34→20:25)
[2016-10-15] MEDS: *HR* OxyCODONE Immed Rel 5 MG TABLET PO PRN ×3 (00:23→09:37)
[2016-10-15 05:01] LABS: Basophils % 0.2 %; Eosinophils # 0.2 K/mcL (0.0-0.6); Eosinophils % 1.3 %; Hematocrit 25.1 % (35.3-44.9); Hemoglobin 7.8 g/dL (11.5-15.4); Immature Granulocytes % 0.8 % (0-4); Lymphocytes # 1.7 K/mcL (0.6-4.6); Mean Corpuscular HGB Conc 31.1 g/dL (31.6-35.5); Mean Corpuscular Hemoglobin 26.7 pg (28.0-33.3); Mean Platelet Volume 10.2 fL (9.4-12.4); Monocytes # 1.1 K/mcL (0.0-1.3); Monocytes % 9.3 %; Neutrophils # 8.9 K/mcL (1.6-8.9); Platelet Count 425 K/mcL (140-400); Red Blood Count 2.92 M/mcL (3.82-4.97); Red Cell Distribution Width 14.4 % (11.5-14.5); Segmented Neutrophils % 74.4 %
[2016-10-15 05:14] LABS: BUN/Creatinine Ratio 14 (6-26); Calcium 7.6 mg/dL (8.6-10.8); Carbon Dioxide 20 mEq/L (19-29); Chloride 114 mEq/L (98-109); Glucose 115 mg/dL (70-99); Osmolality,Calculated 291 (280-300); Potassium 3.5 mEq/L (3.5-4.5); Sodium 141 mEq/L (136-145); eGFR For African Americans > 60 (> 60); eGFR For Non-African Americans > 60 (> 60)
[2016-10-15 05:19] LABS: Blood Urea Nitrogen 8 mg/dL (7-20)
[2016-10-15] MEDS: Insulin LISPRO 300 UNITS/3 ML VIAL SQ SCH ×4 (08:31→20:55)
--- NOTE | 2016-10-15 09:27 | Vascular/[facility] Progress Note ---
Date of Encounter: 10/15/16 Time of Encounter: 09:24 - Assessment and plan (1) Gas gangrene of lower extremity Current Visit: Yes Status: Acute POD #4 left AKA for gas gangrene IVF IV antibiotics - Zosyn pain control diabetic diet ready for discharge to rehab facility I examined this patient and my medical decision-making was reviewed with the [employer] SALESPERSON/PA/Advanced Practice Nurse/Resident Physician. I agree with the documented findings, disposition and treatment plan as described except to the extent set forth below. 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 transplanted heart: [place] heart Associated angina: without angina Qualified Code(s): I25.10 - Atherosclerotic heart disease of [place] coronary artery without angina pectoris (4) Peripheral vascular disease Current Visit: Yes Status: Chronic (5) HTN (hypertension) Current Visit: No Status: Chronic well controlled continue home Lisinopril Qualifiers: Hypertension type: essential hypertension Qualified Code(s): I10 - Essential (primary) hypertension (6) HLD (hyperlipidemia) Current Visit: No Status: Chronic Continue home Lipitor Qualifiers: Hyperlipidemia type: mixed hyperlipidemia Qualified Code(s): E78.2 - Mixed hyperlipidemia (7) DVT prophylaxis Current Visit: Yes Status: Acute Heparin 5,000 units SQ BID (8) Sepsis Current Visit: Yes Status: Resolved resolved - met criteria with fever, tachycardia, and leukocytosis blood cultures preliminary report - no growth Qualifiers: Sepsis type: sepsis due to unspecified organism Qualified Code(s): A41.9 - Sepsis, unspecified organism - Subjective Interval history: Patient improving daily. Pain coming in spasms. Ready for rehab facility. Vital Signs, Last 4 Hours Temp Pulse Resp BP Pulse Ox 10/15/16 07:00 97.8 F 73 16 144/80 97 - Physical Examination General: Present: Conversant, No Apparent Distress, Well developed, Well nourished HEENT: Present: Atraumatic, Normocephaly, Trachea midline, Pupils equal Cardiac: Present: Reg Rate and Rhythm Lungs: Present: Normal Breath Sounds Neuro: Present: Alert and responsive, No focal deficits noted, Cranial nerves grossly intact Vascular: Present: Surgical incisions (clean and dry, intact; tender), Amputation(s) (left AKA) Abdomen: Present: Soft, Non-tender Skin: Present: No rashes noted on visualized skin - VTE Documentation of Mechanical Device: Intermittent pneumatic compression device Results 10/16/16 04:52 10/16/16 04:52 Lab Results, Last 24 hours 10/15/16 10/15/16 04:31 04:31 WBC 12.0 H Hgb 7.8 L Hct 25.1 L Plt Count 425 H Sodium 141 Potassium 3.5 Chloride 114 H Carbon Dioxide 20 BUN 8 D Creatinine 0.57 Glucose 115 H Calcium 7.6 L Consult Discharge Plan - Plan Referrals: NO,PCP [Primary Care Provider] - Prescriptions: OxyCODONE/APAP 5/325 [Percocet 5/325 MG] 1 each PO Q6HR PRN #10 tablet PRN Reason: Pain Ciprofloxacin [Cipro] 500 mg PO BID #10 tablet Ferrous Sulfate 325 mg PO DAILY@0800 #30 tablet
[2016-10-15] MEDS: Aspirin Enteric Coated 81 MG Tablet PO SCH (09:38)
[2016-10-15] MEDS: *HR* Heparin 5,000 UNIT/ML VIAL SQ SCH ×2 (09:38→21:00)
[2016-10-15] MEDS: Pantoprazole 40 MG VIAL IVP SCH (09:38)
[2016-10-15] MEDS: Piperacillin/Tazobactam 3.375 GM in D5% in Water (Mini-Bag+) 100 ML IVPB SCH ×2 (09:38)
[2016-10-15] MEDS: Insulin DETEMIR 100 UNIT/ML X5UNITS SQ SCH ×2 (09:42→20:59)
[2016-10-15] MEDS: 0.9 % Sodium Chloride 1,000 ML IVC SCH (10:58)
--- NOTE | 2016-10-15 12:53 | Discharge Summary ---
Date of Encounter: 10/15/16 Time of Encounter: 11:00 - Discharge Diagnosis (1) Anemia Priority: Secondary Status: Acute Qualifiers: Anemia type: other cause Other causes of anemia: other cause, not classified Qualified Code(s): D64.89 - Other specified anemias (2) Diabetic ulcer of left foot Priority: Primary Status: Acute Qualifiers: Diabetes mellitus type: type 2 Qualified Code(s): E11.621 - Type 2 diabetes mellitus with foot ulcer; L97.529 - Non-pressure chronic ulcer of other part of left foot with unspecified severity (3) Gas gangrene of lower extremity Priority: Primary Status: Acute (4) Diabetes Priority: Secondary Status: Chronic Qualifiers: Diabetes mellitus type: type 2 Diabetes mellitus complication status: with circulatory complication Diabetes mellitus complication detail: with peripheral angiopathy with gangrene Diabetes mellitus correction insulin use: without termite exterminator use Qualified Code(s): E11.52 - Type 2 diabetes mellitus with diabetic peripheral angiopathy with gangrene (5) Sepsis Priority: Primary Status: Resolved Qualifiers: Sepsis type: sepsis due to unspecified organism Qualified Code(s): A41.9 - Sepsis, unspecified organism (6) HLD (hyperlipidemia) Priority: Secondary Status: Chronic Qualifiers: Hyperlipidemia type: mixed hyperlipidemia Qualified Code(s): E78.2 - Mixed hyperlipidemia (7) HTN (hypertension) Priority: Secondary Status: Chronic Qualifiers: Hypertension type: essential hypertension Qualified Code(s): I10 - Essential (primary) hypertension - Discharge Medications Prescriptions: OxyCODONE/APAP 5/325 [Percocet 5/325 MG] 1 each PO Q6HR PRN #10 tablet PRN Reason: Pain Ciprofloxacin [Cipro] 500 mg PO BID #10 tablet Ferrous Sulfate 325 mg PO DAILY@0800 #30 tablet Home Medications: Aspirin Enteric Coated [Aspirin EC] 81 mg PO DAILY 08/13/16 [History] Atorvastatin [Lipitor] 40 mg PO HS #30 tablet 08/17/16 [Rx] Clopidogrel [Plavix] 75 mg PO DAILY #30 tablet 08/17/16 [Rx] Lisinopril [Zestril] 2.5 mg PO DAILY tablet 08/17/16 [Rx] Acetaminophen [Tylenol] 650 mg PO Q6HR PRN 10/11/16 [History] Collagenase Oint [Santyl] 1 appl TP BID 10/11/16 [History] Metformin [Glucophage] 1,000 mg PO BID 10/11/16 [History] Ciprofloxacin [Cipro] 500 mg PO BID #10 tablet 10/15/16 [Rx] Ferrous Sulfate 325 mg PO DAILY@0800 #30 tablet 10/15/16 [Rx] OxyCODONE/APAP 5/325 [Percocet 5/325 MG] 1 each PO Q6HR PRN #10 tablet 10/15/16 [Rx] Allergies/Adverse Reactions: Allergies codeine Adverse Reaction (Intermediate, Verified 08/13/16 13:35) Confusion - Notes to Outpatient Provider 1. Patient has low hemoglobin after surgery. Iron supplement placed. Please follow up CBC in one week. 2. Antibiotic has been changed to Cipro by mouth, please finish further 5 day treatment Date of admission: 10/12/16 04:29 Primary care physician: PCP NO Consults: 10/14/16 07:16 Consult to Occupational Therapy [CONS] Routine Comment: Evaluate, develop and implement POC Consult to Physical Therapy [CONS] Routine Comment: Evaluate, develop and implement POC Discharging clinician: Diony Hebert Anticipated date of discharge: 10/15/16 - Patient Status Disposition: Transfer Inpatient Rehab Fac Condition: Good Functional capacity at discharge: wheelchair bound Overall status at discharge: patient is progressing back to baseline - Discharge Instructions Follow Up With: Lizbet Wasserman CNP [Advanced Practice Nurse] - 10/24/16 10:15 am - Diet and Activity Activity: as per physical therapy Diet: diabetic diet Interval History: Ms. Clark is a 61 year old female who presents from home with left diabetic foot ulcers that have been progressively worsening over the past week. She states she has been seeing Dr. Pollard for about 2 months, and has wound care through his clinic as well. She lives at home with a friend and claims she has a neighbor that comes by and assists with her wound care. She normally is able to walk with a boot, but hasn't been able to in the past 3-4 days due to severe pain. Patient also states subjective fevers, chills, and has been having nausea and vomiting since midnight. She reports 3 episodes of non-bloody emesis that do not have a triggering factor. She also reports having diarrhea but has not been on any antibiotics recently. Of note, she recently had a left fem-tib bypass done by Dr. Plummer and also had a LYLE to RCA 2 months ago and is currently on ASA and Plavix. Denies any chest pain or shortness of breath. Hospital course: Ms. Clark is a 61 year old female admitted for left diabetic foot with gas gangrene. She was counseled by vascular surgeon and decided to have AKA. After surgery she is a stable, no further fever, white count trended down. Incision wound heal well without discharge. We will discharge to rehabilitation center for continuous management. I saw and examined the patient today. She is still complaining the incision site pain. No fever, no nausea, no vomiting, no lightheaded or dizziness. Patient denies shortness of breath or chest pain. Her hemoglobin dropped after surgery, possibly due to acute blood loss, patient tolerated well. We will give her Iron supplement. And the patient will follow up CBC as outpatient. - Time Spent with Patient Total time spent providing and/or coordinating discharge services: 40 minutes Greater than 30 minutes - Constitutional Vitals: Temp Pulse Resp BP Pulse Ox 97.9 F 84 16 149/80 100 10/15/16 10:50 10/15/16 10:50 10/15/16 10:50 10/15/16 10:50 10/15/16 10:50 General appearance: Present: cooperative, mild distress, pleasant, answers questions appropriately - Head Head exam: Present: atraumatic, normocephalic - Eye Eye exam: Present: PERRL, conjuntiva pink, sclera anicteric Pupils: Present: PERRL - Neck Neck exam general surgery: Present: supple, trachea midline. Absent: lymphadenopathy - Respiratory Respiratory exam: Present: CTAB. Absent: accessory muscle use, rales, rhonchi, wheezes - Cardiovascular Cardiovascular exam: Present: RRR, +S1, +S2. Absent: diastolic murmur, gallop, rubs, systolic murmur - GI/Abdominal GI/Abdominal exam: Present: normal bowel sounds, soft, no peritoneal signs. Absent: distended, tenderness - Extremities Exam Extremities exam: Present: warm, radial pulses palpable and symetrical. Absent : calf tenderness, cyanotic, pedal edema Additional comments: Left leg S/P AKA - Neurological Exam Neurological exam: Present: CN II-XII intact, oriented X3, no focal deficits. Absent: pronater drift, facial droop, speech deficit - Skin Skin exam: Present: dry, intact - VTE Documentation of Mechanical Device: Intermittent pneumatic compression device
--- NOTE | 2016-10-15 13:10 | Physician Discharge Referral ---
ExtendedCare Referral Info Transfer To: Rehab Provider in Charge after Transfer: Other Institutional Level of Care: Skilled - Diagnosis (1) Anemia Priority: Primary Status: Acute (2) Diabetic ulcer of left foot Priority: Primary Status: Acute (3) Gas gangrene of lower extremity Priority: Primary Status: Acute (4) Diabetes Priority: Secondary Status: Chronic (5) Sepsis Priority: Primary Status: Resolved (6) HLD (hyperlipidemia) Priority: Secondary Status: Chronic (7) HTN (hypertension) Priority: Secondary Status: Chronic Prognosis: Fair Aware of Diagnosis: Patient Aware of Prognosis: Patient - Transfer Medications Prescriptions: OxyCODONE/APAP 5/325 [Percocet 5/325 MG] 1 each PO Q6HR PRN #10 tablet PRN Reason: Pain Ciprofloxacin [Cipro] 500 mg PO BID #10 tablet Ferrous Sulfate 325 mg PO DAILY@0800 #30 tablet Home Medications: Aspirin Enteric Coated [Aspirin EC] 81 mg PO DAILY 08/13/16 [History] Atorvastatin [Lipitor] 40 mg PO HS #30 tablet 08/17/16 [Rx] Clopidogrel [Plavix] 75 mg PO DAILY #30 tablet 08/17/16 [Rx] Lisinopril [Zestril] 2.5 mg PO DAILY tablet 08/17/16 [Rx] Acetaminophen [Tylenol] 650 mg PO Q6HR PRN 10/11/16 [History] Collagenase Oint [Santyl] 1 appl TP BID 10/11/16 [History] Metformin [Glucophage] 1,000 mg PO BID 10/11/16 [History] Ciprofloxacin [Cipro] 500 mg PO BID #10 tablet 10/15/16 [Rx] Ferrous Sulfate 325 mg PO DAILY@0800 #30 tablet 10/15/16 [Rx] OxyCODONE/APAP 5/325 [Percocet 5/325 MG] 1 each PO Q6HR PRN #10 tablet 10/15/16 [Rx] Allergies/Adverse Reactions: Allergies codeine Adverse Reaction (Intermediate, Verified 08/13/16 13:35) Confusion - Respiratory Orders Smoking Cessation: Smoking cessation has been advised. For more information, call the [place] Tobacco Quit Line at 3-046-JDAZ-NOW. - Lab Orders Lab Orders: CBC (in one week) - Advance Directives Code Status: Full Code - Mobility Orders Chair - Rehabiliation Orders Rehab Potential: Fair Rehab Orders: Evaluation for Physical Therapy, Evaluation for Occupational Therapy - Diet Orders No Concentrated Sweets (DM diet) CERTIFICATION: I certify that the transfer of the above named patient to an Extended Care Facility is necessary for the continuing treatment of the diagnosis listed. The above information is true and accurate reflection of patient's current condition. Confidential - Redisclosure prohibited without a patient's written consent.
[2016-10-15] MEDS: *HR* OxyCODONE/APAP 5/325 TABLET PO PRN ×2 (13:31→19:22)
[2016-10-16] MEDS: 0.9 % Sodium Chloride 1,000 ML IVC SCH (01:01)
[2016-10-16 05:44] LABS: Basophils % 0.3 %; Eosinophils # 0.2 K/mcL (0.0-0.6); Eosinophils % 1.6 %; Hematocrit 24.9 % (35.3-44.9); Hemoglobin 7.8 g/dL (11.5-15.4); Immature Granulocytes % 0.9 % (0-4); Lymphocytes # 1.9 K/mcL (0.6-4.6); Lymphocytes % 19.2 %; Mean Corpuscular HGB Conc 31.3 g/dL (31.6-35.5); Mean Corpuscular Volume 86.2 fL (83.0-100.0); Monocytes # 0.9 K/mcL (0.0-1.3); Monocytes % 9.2 %; Neutrophils # 6.7 K/mcL (1.6-8.9); Platelet Count 449 K/mcL (140-400); Red Blood Count 2.89 M/mcL (3.82-4.97); Red Cell Distribution Width 14.5 % (11.5-14.5); Segmented Neutrophils % 68.8 %
[2016-10-16] MEDS: *HR* OxyCODONE/APAP 5/325 TABLET PO PRN (05:49)
[2016-10-16 05:57] LABS: BUN/Creatinine Ratio 13 (6-26); Blood Urea Nitrogen 7 mg/dL (7-20); Calcium 7.7 mg/dL (8.6-10.8); Carbon Dioxide 21 mEq/L (19-29); Chloride 115 mEq/L (98-109); Glucose 136 mg/dL (70-99); Osmolality,Calculated 294 (280-300); Potassium 3.3 mEq/L (3.5-4.5); Sodium 142 mEq/L (136-145); eGFR For African Americans > 60 (> 60); eGFR For Non-African Americans > 60 (> 60)
[2016-10-16 07:42] VITALS: BP 149/81
[2016-10-16] MEDS ORDERED: Potassium Chloride Elixir 20 MEQ/15 ML UDC PO ONE (07:47)
[2016-10-16] MEDS: Insulin LISPRO 300 UNITS/3 ML VIAL SQ SCH (07:48)
[2016-10-16] MEDS: *HR* Heparin 5,000 UNIT/ML VIAL SQ SCH (08:02)
[2016-10-16] MEDS: Pantoprazole 40 MG VIAL IVP SCH (08:02)
[2016-10-16] MEDS: Aspirin Enteric Coated 81 MG Tablet PO SCH (08:02)
[2016-10-16] MEDS: Insulin DETEMIR 100 UNIT/ML X5UNITS SQ SCH (08:12)
--- NOTE | 2016-10-16 10:41 | Internal Med Progress Note ---
Date of Encounter: 10/16/16 Time of Encounter: 08:00 - Assessment and plan (1) Anemia Current Visit: Yes Status: Acute Assessment and plan: Hemoglobin low, possibly due to acute blood loss. no signs of active bleeding, will give iron supplement and monitor h/h as outpatient. Qualifiers: Anemia type: other cause Other causes of anemia: other cause, not classified Qualified Code(s): D64.89 - Other specified anemias (2) Diabetic ulcer of left foot Current Visit: Yes Status: Acute Assessment and plan: S/p AKA Qualifiers: Diabetes mellitus type: type 2 Qualified Code(s): E11.621 - Type 2 diabetes mellitus with foot ulcer; L97.529 - Non-pressure chronic ulcer of other part of left foot with unspecified severity (3) Gas gangrene of lower extremity Current Visit: Yes Status: Acute Assessment and plan: Status post left AKA. On vancomycin and Zosyn. Cultures have been negative so far. Will change to po Cipro upon discharge. WBC Down to normal. (4) Diabetes Current Visit: Yes Status: Chronic Assessment and plan: Well-controlled Qualifiers: Diabetes mellitus type: type 2 Diabetes mellitus complication status: with circulatory complication Diabetes mellitus complication detail: with peripheral angiopathy with gangrene Diabetes mellitus remote computer terminal operator insulin use: without [facility] use Qualified Code(s): E11.52 - Type 2 diabetes mellitus with diabetic peripheral angiopathy with gangrene (5) Sepsis Current Visit: Yes Status: Resolved Assessment and plan: Due To gas gangrene, resolved Qualifiers: Sepsis type: sepsis due to unspecified organism Qualified Code(s): A41.9 - Sepsis, unspecified organism (6) HLD (hyperlipidemia) Current Visit: No Status: Chronic Assessment and plan: On statin Qualifiers: Hyperlipidemia type: mixed hyperlipidemia Qualified Code(s): E78.2 - Mixed hyperlipidemia (7) HTN (hypertension) Current Visit: No Status: Chronic Assessment and plan: blood pressure is stable. Qualifiers: Hypertension type: essential hypertension Qualified Code(s): I10 - Essential (primary) hypertension - Time Spent With Patient 25 - 35 minutes - Subjective Interval history: Patient is a 61-year-old female admitted for diabetic foot ulcer and gas gangrene of left foot. She did left AKA. Patient is supposed to discharge yesterday but delayed because of placement issue. Patient will discharge to shelter today. Her hemoglobin level is stable with yesterday at 7.8. Patient to tolerate well without any shortness of breath, lightheaded, or dizziness. She has no signs of any active bleeding. I discussed with her, it is possibly due to surgical blood loss. We will will give her iron pills and she has good appetite. We will repeat CBC in 1 week. Patient verbalized understanding and agree with the management plan. Her potassium is 3.3 today, we will give 40 mEq potassium by mouth before discharge. - Constitutional Vitals: Temp Pulse Resp BP Pulse Ox 98.2 F 70 16 149/81 97 10/16/16 07:41 10/16/16 07:41 10/16/16 07:41 10/16/16 07:41 10/16/16 07:41 General appearance: Present: cooperative, mild distress, pleasant, answers questions appropriately - Head Head exam: Present: atraumatic, normocephalic - Eye Eye exam: Present: PERRL, conjuntiva pink, sclera anicteric Pupils: Present: PERRL - Neck Neck exam general surgery: Present: supple, trachea midline. Absent: lymphadenopathy - Respiratory Respiratory exam: Present: CTAB. Absent: accessory muscle use, rales, rhonchi, wheezes - Cardiovascular Cardiovascular exam: Present: RRR, +S1, +S2. Absent: diastolic murmur, gallop, rubs, systolic murmur - GI/Abdominal GI/Abdominal exam: Present: normal bowel sounds, soft, no peritoneal signs. Absent: distended, tenderness - Extremities Exam Extremities exam: Present: warm, radial pulses palpable and symetrical. Absent : calf tenderness, cyanotic, pedal edema Additional comments: Left leg S/P AKA, incisional wound is clear - Neurological Exam Neurological exam: Present: CN II-XII intact, oriented X3, no focal deficits. Absent: pronater drift, facial droop, speech deficit - Skin Skin exam: Present: dry, intact Internal Medicine: Result - Labs CBC & Chem 7: 10/16/16 04:52 10/16/16 04:52 Labs: Short CBC 10/16/16 Range/Units 04:52 WBC 9.7 (4.3-11.1) K/mcL Hgb 7.8 L (11.5-15.4) g/dL Hct 24.9 L (35.3-44.9) % Plt Count 449 H (140-400) K/mcL Neutrophils # 6.7 (1.6-8.9) K/mcL BMP 10/16/16 04:52 Sodium 142 Potassium 3.3 L Chloride 115 H Carbon Dioxide 21 BUN 7 Creatinine 0.52 L Glucose 136 H Calcium 7.7 L - ABG Interpretation ABG results: PT/INR, D-dimer PT 15.6 Seconds (9.4-12.1) H 10/11/16 15:36 - VTE Documentation of Mechanical Device: Intermittent pneumatic compression device Consult Discharge Plan - Plan Referrals: Tevin Pacheco MD [Partnered Physician] - 10/30/16 4:05 pm Prescriptions: OxyCODONE/APAP 5/325 [Percocet 5/325 MG] 1 each PO Q6HR PRN #10 tablet PRN Reason: Pain Ciprofloxacin [Cipro] 500 mg PO BID #10 tablet Ferrous Sulfate 325 mg PO DAILY@0800 #30 tablet
== END 2016-10-16 10:39 | DRG 710 ==
LOC: EMEROO 15:08 → 3NENU 15:08 → ICNU 10-12 00:10 → SUATTDRO 10-12 04:29 → 3ANU 10-12 11:14
PROVIDERS: ADMIT Internal Medicine; ATTEND Internal Medicine